=== PATIENT | female | born 1930 | race Caucasian/White ===

== ENCOUNTER 2017-10-13 16:40 | Inpatient (IN) | payer MEDICARE, BC ==
[2017-10-13] MEDS ORDERED: Prevnar 13-Val Conj/PF 0.5 ML SYRINGE IM ONE (18:45)
[2017-10-13 19:39] LABS: Bilirubin Negative (Negative); Blood, Urine Moderate (Negative); Clarity Slightly Cloudy (Clear); Glucose, Urine (Dipstick) Negative (Negative); Leukocyte Large (Negative); Nitrite Positive (Negative); Protein, Urine (Dipstick) 30 mg/dL (Neg-Trace); Urobilinogen 0.2 mg/dL (0.2-1.0)
[2017-10-13 19:46] LABS: Bacteria/HPF 2+ HPF (None Seen); RBC/HPF GREATER THAN 50-TNTC HPF (0-3); Squamous Epithelial 0-3 HPF (0-3)
[2017-10-13] MEDS: levETIRAcetam 500 MG TAB PER TUBE SCH (21:55)
[2017-10-13] MEDS: Losartan 25 MG TAB PER TUBE SCH (21:56)
[2017-10-13] MEDS: Nystatin 500,000 UNITS/5 ML UDCUP SSW SCH (21:57)
[2017-10-13] MEDS: DOFETILIDE PER TUBE SCH (21:59)
[2017-10-14] MEDS: Linezolid 600 MG TAB PER TUBE SCH ×2 (04:54→15:53)
[2017-10-14 07:21] LABS: #Basophils 0.1 thou/uL (0.0-0.2); #Eosinphils 0.1 thou/uL (0.0-0.7); #Lymphocytes 1.2 thou/uL (1.20-3.40); #Monocytes 1.2 thou/uL (0.11-0.59); %Basophils 1.2 % (0.0-1.0); %Eosinophils 1.3 % (0.0-10.0); %Lymphocytes 11.6 % (21.0-51.0); %Monocytes 11.2 % (0.0-10.0); %Neutrophils 74.6 % (42.0-75.0); Mean Corpuscular Hemoglobin 31.8 pg (27.0-31.0); Mean Corpuscular Volume 93.6 fl (81.0-99.0); Mean Platelet Volume 6.8 fL (7.4-10.4); Platelet Count 204 thou/uL (130-400); RBC Distribution Width 14.1 % (11.5-14.5); Red Blood Cell (RBC) Count 3.76 mill/uL (4.20-5.40); White Blood Cell (WBC) Count 10.7 thou/uL (4.8-10.8)
[2017-10-14 07:31] LABS: Anion Gap 18 mmol/L (10-20); BUN (Urea Nitrogen) 19 mg/dL (9.8-20.1); Calc. Creatinine Clearance 72 mL/min (70-130); Calcium 9.3 mg/dL (7.8-10.44); Carbon Dioxide 21 mmol/L (23-31); Chloride 99 mmol/L (98-107); Estimated GFR-MDRD 79; Glucose 131 mg/dL (83-110); Potassium 4.5 mmol/L (3.5-5.1); Sodium 133 mmol/L (136-145)
[2017-10-14] MEDS ORDERED: Magnesium Oxide 400 MG TAB PO SCH (09:00)
[2017-10-14] MEDS ORDERED: Calcium Carbonate 500 MG TAB PER TUBE SCH (09:00)
[2017-10-14] MEDS: Nystatin 500,000 UNITS/5 ML UDCUP SSW SCH ×2 (09:12→22:01)
[2017-10-14] MEDS: levETIRAcetam 500 MG TAB PER TUBE SCH ×2 (09:14→22:01)
[2017-10-14] MEDS: Losartan 25 MG TAB PER TUBE SCH ×2 (09:14→22:03)
[2017-10-14] MEDS: Vitami E (Dl,Tocopheryl Acet) 400 UNITS CAP PO SCH (09:15)
--- NOTE | 2017-10-14 10:09 | HP ---
DATE OF EXAMINATION: 10/14/2017 CHIEF COMPLAINT: Recent glioblastoma excision complicated by localized cellulitis and cerebritis req uiring washout and transferred here for long-term antibiotics and therapy. BRIEF HISTORY: This is a pleasant 86-year-old female who recently underwent right glioblas karina excision without any complications. She was discharged home. Apparently she was picking on her incision and developed redness and confusion and was brought to the emergency room. She was felt to have cerebritis and cellulitis. Neurosurgery evaluated her and the imaging showed a 3.3 x 3.1 cm he terogeneous intraaxial lesion in the right frontal region postoperative cavity. They did incision an d drainage with irrigation and washout. Cultures grew MRSA. It is sensitive to Zyvox, and she is on Zyvox through her PEG tube. She had to have a PEG tube placed due to dysphagia. She is apparently aphasic and minimally responsive. She has been transferred here for nutritional support continuing a ntibiotics and possible therapy. The patient is not able to respond to ak today. No family at [facility]. PAST MEDICAL HISTORY: 1. Cardiac arrhythmia, status post pacemaker placement and history of ablation. 2. Hypertension. 3. Dyslipidemia. 4. Osteoporosis. 5. Coronary artery disease. 6. Peripheral vascular disease. PAST SURGICAL HISTORY: 1. Right carotid endarterectomy. 2. Permanent pacemaker placement. 3. History of cardiac ablation. 4. Recent craniotomy for the right-sided glioblastoma excision and repeat craniotomy for wash out an d PEG tube placement. FAMILY HISTORY: Positive for TIAs and dementia in her mother. PSYCHOSOCIAL HISTORY: No documented tobacco, alcohol or IV drug abuse. CURRENT MEDICATIONS: She has been transferred here on the following medications: 1. Zyvox 600 mg per PEG b.i.d. until 11/03/2017. 2. Calcium carbonate 600 mg daily. 3. Vitamin D3 1000 units daily. 4. Tikosyn 0.125 mg per PEG t.i.d. 5. Lovenox 30 mg subcutaneously daily. 6. Keppra 250 mg b.i.d. 7. Losartan 50 mg b.i.d. 8. Magnesium 250 mg daily. 9. Toprol-XL 50 mg b.i.d. 10. Ranexa 500 mg b.i.d. 11. Vitamin E 400 units daily. REVIEW OF SYSTEMS: Unable to be obtained from the patient at the present time. PHYSICAL EXAMINATION: GENERAL: A 87-year-old female resting comfortably in no apparent distress. No family at [facility]. She is not responding to any verbal stimuli. She does grimace to sternal rub and opens her eyes, but goes back to sleep. HEENT: Craniotomy incision is healthy. No thyromegaly, no carotid bruits. CARDIOVASCULAR: S1, S2 plus. RESPIRATORY: Vesicular breath sounds. ABDOMEN: Soft, nontender, obese. Bowel sounds heard in all quadrants. EXTREMITIES: Without cyanosis, clubbing. 1+ edema. [employer]CH [employer]ENDING OFFICER: Unable to be examined. LABORATORY VALUES: Shows a white count of 10.7, H&H is 12 and 35.2. Sodium was 133, improved. It w as 131 yesterday and 127 on the . Potassium 4.5, BUN and creatinine is 19 and 0.7. Urinalysis d oes show greater than 50 to too numerous to count RBCs and 50 to too numerous to count WBCs. She luke s have a Dupont catheter. PEG tube site is healthy. IMPRESSION: 1. 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 2. Recent right-sided glioblastoma excision. 3. Dysphagia requiring PEG tube placement. 4. Coronary artery disease. 5. Cardiac arrhythmia, status post ablation. 6. Hypertension. 7. Dyslipidemia. 8. Osteoporosis. PLAN: 1. Continue Zyvox. 2. PEG tube feeding. 3. Aspiration precautions. 4. Head end of bed at 30 degrees at all times. 5. Continue discharge medications. 6. Routine laboratory values. 7. Monitor sodium level. Her hyponatremia is improving. 8. No family at bedside. 9. Physical therapy and occupational therapy as well as speech therapy evaluation and treat. 10. PEG tube care. 11. Discussed with nursing and all questions answered.
[2017-10-14] MEDS: Enoxaparin Sodium 30 MG/0.3 ML SYRINGE SC SCH (11:17)
[2017-10-14] MEDS: DOFETILIDE PER TUBE SCH ×2 (11:17→15:53)
[2017-10-14] MEDS: Dofetilide 0.125 MG CAP PER TUBE SCH (22:02)
[2017-10-14] MEDS: Metoprolol Tartrate 50 MG TAB PER TUBE SCH (22:03)
[2017-10-15] MEDS: Linezolid 600 MG TAB PER TUBE SCH ×2 (03:51→16:34)
[2017-10-15] MEDS: Losartan 25 MG TAB PER TUBE SCH ×2 (08:35→22:00)
[2017-10-15] MEDS: levETIRAcetam 500 MG TAB PER TUBE SCH ×2 (08:35→21:59)
[2017-10-15] MEDS: Nystatin 500,000 UNITS/5 ML UDCUP SSW SCH ×2 (08:35→21:58)
[2017-10-15] MEDS: Calcium Carbonate + Vit D 1 TAB PER TUBE SCH (08:36)
[2017-10-15] MEDS: Magnesium Oxide 400 MG TAB PO SCH (08:36)
[2017-10-15] MEDS: Metoprolol Tartrate 50 MG TAB PER TUBE SCH ×2 (08:36→22:01)
[2017-10-15] MEDS: Dofetilide 0.125 MG CAP PER TUBE SCH ×3 (08:36→22:00)
[2017-10-15] MEDS: Vitami E (Dl,Tocopheryl Acet) 400 UNITS CAP PO SCH (08:36)
[2017-10-15] MEDS ORDERED: MAGNESIUM PER TUBE SCH (09:00)
[2017-10-15] MEDS ORDERED: CALCIUM CARBONATE PER TUBE SCH (09:00)
[2017-10-15] MEDS: Enoxaparin Sodium 30 MG/0.3 ML SYRINGE SC SCH (09:35)
--- NOTE | 2017-10-15 15:33 | PRG ---
DATE OF SERVICE: 10/15/2017 SUBJECTIVE: Ms. Eckert is more responsive today. She opens her eyes to commands. Her family is in the room. No other concerns or questions. OBJECTIVE: VITAL SIGNS: She is afebrile. Heart rate is 80, respirations are 22, oxygen saturation 93% on room air and blood pressure 136/73. HEENT: Scalp incision is healthy and sutures were removed yesterday. CARDIOVASCULAR SYSTEM: S1 and S2 plus. RESPIRATORY SYSTEM: Normal breath sounds. ABDOMEN: Soft, obese and nontender. Bowel sounds heard in all quadrants. EXTREMITIES: Without cyanosis or clubbing. Peripheral pulses are palpable. CENTRAL NERVOUS SYSTEM: Significant weakness. She does open her eyes to commands and did nod her he ad when I told her that I was going to listen to her heart. IMPRESSION: 1. Status post glioblastoma excision. 2. Methicillin-resistant Staphylococcus aureus cerebritis, improving. 3. Hypertension, well controlled. 4. Dyslipidemia. 5. History of cardiac arrhythmia. 6. Osteoporosis. 7. Coronary artery disease without angina. 8. Peripheral vascular disease. PLAN: 1. Continue Zyvox via PEG. 2. Nutritional support. 3. Physical therapy, occupational therapy and speech therapy. 4. DVT and stress ulcer prophylaxis. 5. Decubitus precautions. 6. Routine laboratory values. 7. Nutritional support. 8. I discussed with family in detail and all questions answered.
[2017-10-15] MEDS: SMX/TMP 800-160mg/20 ML UDCUP PER TUBE SCH (21:59)
[2017-10-16] MEDS: Linezolid 600 MG TAB PER TUBE SCH ×2 (04:14→16:27)
[2017-10-16 05:30] LABS: #Basophils 0.1 thou/uL (0.0-0.2); #Eosinphils 0.2 thou/uL (0.0-0.7); #Monocytes 0.9 thou/uL (0.11-0.59); #Neutrophils 5.2 thou/uL (1.40-6.50); %Basophils 1.1 % (0.0-1.0); %Eosinophils 2.8 % (0.0-10.0); %Lymphocytes 23.8 % (21.0-51.0); %Monocytes 11.1 % (0.0-10.0); %Neutrophils 61.3 % (42.0-75.0); Mean Corpuscular HGB CONC 33.3 g/dL (32.0-36.0); Mean Corpuscular Hemoglobin 31.5 pg (27.0-31.0); Mean Corpuscular Volume 94.5 fl (81.0-99.0); Mean Platelet Volume 7.7 fL (7.4-10.4); Platelet Count 186 thou/uL (130-400); RBC Distribution Width 14.1 % (11.5-14.5); Red Blood Cell (RBC) Count 3.82 mill/uL (4.20-5.40); White Blood Cell (WBC) Count 8.5 thou/uL (4.8-10.8)
[2017-10-16 05:39] LABS: Anion Gap 16 mmol/L (10-20); BUN (Urea Nitrogen) 21 mg/dL (9.8-20.1); Calc. Creatinine Clearance 76 mL/min (70-130); Calcium 9.6 mg/dL (7.8-10.44); Carbon Dioxide 22 mmol/L (23-31); Chloride 95 mmol/L (98-107); Estimated GFR-MDRD 85; Glucose 110 mg/dL (83-110); Sodium 128 mmol/L (136-145)
[2017-10-16] MEDS: Nystatin 500,000 UNITS/5 ML UDCUP SSW SCH ×2 (09:46→21:49)
[2017-10-16] MEDS: Magnesium Oxide 400 MG TAB PO SCH (09:46)
[2017-10-16] MEDS: Dofetilide 0.125 MG CAP PER TUBE SCH ×3 (09:46→21:50)
[2017-10-16] MEDS: Vitami E (Dl,Tocopheryl Acet) 400 UNITS CAP PO SCH (09:46)
[2017-10-16] MEDS: Losartan 25 MG TAB PER TUBE SCH ×2 (09:47→21:50)
[2017-10-16] MEDS: levETIRAcetam 500 MG TAB PER TUBE SCH ×2 (09:47→21:50)
[2017-10-16] MEDS: Calcium Carbonate + Vit D 1 TAB PER TUBE SCH (09:48)
[2017-10-16] MEDS: SMX/TMP 800-160mg/20 ML UDCUP PER TUBE SCH (09:48)
[2017-10-16] MEDS: Metoprolol Tartrate 50 MG TAB PER TUBE SCH ×2 (09:48→21:49)
[2017-10-16] MEDS: Enoxaparin Sodium 30 MG/0.3 ML SYRINGE SC SCH (09:49)
--- NOTE | 2017-10-16 16:19 | PRG ---
DATE OF SERVICE: 10/16/2017 SUBJECTIVE: Mr. Eckert is awake. She is responsive. She is trying to speak. She does have some si gnificant dysarthria. She does follow simple commands. No family at bedside. OBJECTIVE: VITAL SIGNS: She is afebrile, heart rate 79, respirations 20, and blood pressure 140/65. CARDIOVASCULAR SYSTEM: S1, S2 plus. RESPIRATORY SYSTEM: Normal vesicular breath sounds. ABDOMEN: Soft, nontender, bowel sounds heard in all quadrants. EXTREMITIES: Without cyanosis or clubbing. IMPRESSION: 1. Urine culture is growing Pseudomonas, it is sensitive to ciprofloxacin and resistant to Bactrim. 2. Glioblastoma excision. 3. Cardiac arrhythmia, status post pacemaker placement and history of ablation. 4. Hypertension, well controlled. 5. Dyslipidemia. 6. Osteoporosis. 7. Coronary artery disease. PLAN: 1. Discontinue Bactrim and switch her to ciprofloxacin or Levaquin. 2. Continue nutritional support through PEG tube. 3. PT, OT, and Speech. 4. DVT and stress ulcer prophylaxis. 5. Decubitus precautions. 6. Zyvox until 11/02. 7. Routine laboratory values.
[2017-10-17] MEDS: Linezolid 600 MG TAB PER TUBE SCH ×2 (04:50→15:58)
[2017-10-17] MEDS: Nystatin 500,000 UNITS/5 ML UDCUP SSW SCH ×2 (08:58→22:09)
[2017-10-17] MEDS: levETIRAcetam 500 MG TAB PER TUBE SCH ×2 (08:59→22:10)
[2017-10-17] MEDS: Magnesium Oxide 400 MG TAB PO SCH (08:59)
[2017-10-17] MEDS: Vitami E (Dl,Tocopheryl Acet) 400 UNITS CAP PO SCH (09:00)
[2017-10-17] MEDS: Calcium Carbonate + Vit D 1 TAB PER TUBE SCH (09:00)
[2017-10-17] MEDS: Metoprolol Tartrate 50 MG TAB PER TUBE SCH ×2 (09:00→22:09)
[2017-10-17] MEDS: Losartan 25 MG TAB PER TUBE SCH ×2 (09:00→22:09)
[2017-10-17] MEDS: Dofetilide 0.125 MG CAP PER TUBE SCH ×3 (09:00→22:09)
[2017-10-17] MEDS: Enoxaparin Sodium 30 MG/0.3 ML SYRINGE SC SCH (09:01)
--- NOTE | 2017-10-17 13:32 | PRG ---
DATE OF SERVICE: 10/17/2017 SUBJECTIVE: Ms. Eckert is awake, follows some commands. Her daughter is in the room. No concerns o r questions. OBJECTIVE: VITAL SIGNS: She is afebrile. Heart rate is 81, respirations 20, oxygen saturation 95% on room air and blood pressure 137/71. CARDIOVASCULAR SYSTEM: S1 and S2 plus. RESPIRATORY SYSTEM: Normal vesicular breath sounds. ABDOMEN: Soft and nontender. Bowel sounds heard in all quadrants. EXTREMITIES: Without cyanosis or clubbing. IMPRESSION: 1. Urinary tract infection with Escherichia coli. 2. Glioblastoma excision. 3. Methicillin-resistant Staphylococcus aureus cerebritis. 4. Hypertension, well controlled. 5. Dyslipidemia. 6. Osteoporosis. 7. Coronary artery disease. PLAN: 1. Continue Levaquin. 2. PEG tube feedings. 3. Aspiration precautions. 4. PT, OT, and speech treatment. 5. DVT and stress ulcer prophylaxis. 6. Decubitus precautions. 7. Zyvox until 11/02.
[2017-10-18] MEDS: Linezolid 600 MG TAB PER TUBE SCH ×2 (05:45→15:12)
[2017-10-18] MEDS: Losartan 25 MG TAB PER TUBE SCH ×2 (08:14→21:39)
[2017-10-18] MEDS: Nystatin 500,000 UNITS/5 ML UDCUP SSW SCH ×2 (08:14→21:40)
[2017-10-18] MEDS: Vitami E (Dl,Tocopheryl Acet) 400 UNITS CAP PO SCH (08:15)
[2017-10-18] MEDS: Metoprolol Tartrate 50 MG TAB PER TUBE SCH ×2 (08:15→21:39)
[2017-10-18] MEDS: Magnesium Oxide 400 MG TAB PO SCH (08:15)
[2017-10-18] MEDS: levETIRAcetam 500 MG TAB PER TUBE SCH ×2 (08:15→21:39)
[2017-10-18] MEDS: Calcium Carbonate + Vit D 1 TAB PER TUBE SCH (08:15)
[2017-10-18] MEDS: Dofetilide 0.125 MG CAP PER TUBE SCH ×3 (08:16→21:39)
[2017-10-18] MEDS: Enoxaparin Sodium 30 MG/0.3 ML SYRINGE SC SCH (11:35)
--- NOTE | 2017-10-18 14:01 | PRG ---
DATE OF SERVICE: 10/18/2017 SUBJECTIVE: Ms. Eckert is doing the same. She does briefly open her eyes to verbal stimuli, but Ms. Eckert is not following any commands today. She is resting comfortably. OBJECTIVE: VITAL SIGNS: She is afebrile, heart rate 80, respirations 20, oxygen saturation 93% on room air, blo od pressure 134/68. CARDIOVASCULAR SYSTEM: S1 and S2 plus. RESPIRATORY SYSTEM: Normal vesicular breath sounds. ABDOMEN: Soft, nontender, bowel sounds heard in all quadrants. EXTREMITIES: Without cyanosis or clubbing. Peripheral pulses are palpable. CENTRAL NERVOUS SYSTEM: Unable to examine due to patient's condition. IMPRESSION: 1. Urinary tract infection with Escherichia coli. 2. Recent glioblastoma excision. 3. Methicillin-resistant Staphylococcus aureus cerebritis. 4. Hypertension. 5. Dyslipidemia. 6. Osteoporosis. 7. Coronary artery disease. PLAN: 1. Continue Levaquin and Zyvox. 2. PEG tube feedings. 3. Aspiration precautions. 4. PT, OT, and Speech 5. DVT and stress ulcer prophylaxis. 6. Decubitus precautions. 7. Routine laboratory values. 8. Dr. Tahmina Gipson on-call from today until Tuesday, 10/23, end date of Zyvox is 11/02.
[2017-10-19] MEDS: Linezolid 600 MG TAB PER TUBE SCH ×2 (04:56→15:54)
[2017-10-19] MEDS: Enoxaparin Sodium 30 MG/0.3 ML SYRINGE SC SCH (08:50)
[2017-10-19] MEDS: Dofetilide 0.125 MG CAP PER TUBE SCH ×3 (08:51→21:58)
[2017-10-19] MEDS: Nystatin 500,000 UNITS/5 ML UDCUP SSW SCH ×2 (08:51→21:58)
[2017-10-19] MEDS: Vitami E (Dl,Tocopheryl Acet) 400 UNITS CAP PO SCH (08:51)
[2017-10-19] MEDS: Calcium Carbonate + Vit D 1 TAB PER TUBE SCH (08:51)
[2017-10-19] MEDS: Metoprolol Tartrate 50 MG TAB PER TUBE SCH ×2 (08:51→21:58)
[2017-10-19] MEDS: Losartan 25 MG TAB PER TUBE SCH ×2 (08:51→21:58)
[2017-10-19] MEDS: Magnesium Oxide 400 MG TAB PO SCH (08:51)
[2017-10-19] MEDS: levETIRAcetam 500 MG TAB PER TUBE SCH ×2 (08:54→21:58)
--- NOTE | 2017-10-20 00:16 | PRG ---
DATE OF ADMISSION: 10/13/2017 DATE OF SERVICE: 10/19/2017 HISTORY OF PRESENT ILLNESS: Ms. Eckert is a very pleasant 87-year-old white female that underwent a right glioblastoma excision without any complications. She was discharged home, but kept aggravating incision, eventually became red and she was brought to the emergency room where she was found to hav e cerebritis and cellulitis. Neurosurgery evaluated her and found a 3.3 x 3.1 heterogeneous intraaxi al lesion in the right frontal region postop cavity. She did an excision and drainage with irrigatio n and washout. Cultures grew MRSA, which is sensitive to Zyvox. She presently is on Zyvox through t he PEG tube. She is aphasic and minimally responsive, but smiles at times. PHYSICAL EXAMINATION: VITAL SIGNS: Today reveal blood pressure this morning 134/61, pulse 80 to 82, respirations 18 to 20, O2 sat 94% to 95% on room air, T-max 97.7. GENERAL: This is a well-developed, well-nourished, very pleasant 87-year-old white female in no appa rent distress at this time. HEENT: Reveals normocephalic, nontraumatic cranium. Pupils are equally round and reactive. Extraoc ular movements intact. Nose and throat are slightly dry. NECK: Supple, without mass, nodes or bruits. LUNGS: Chest is clear to auscultation. HEART: Reveals a regular rate and rhythm without murmurs, gallops or rubs. ABDOMEN: Soft, nontender, without organomegaly. Normal bowel sounds are noted in all 4 quadrants. No rebound or guarding is noted. : Deferred. EXTREMITIES: Reveal no clubbing, cyanosis with 1+ edema. NEUROLOGIC: Cranium reveals craniotomy incision is still healing well. IMPRESSION: 1. 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 2. Right side glioblastoma excision. 3. Dysphagia requiring PEG tube placement. 4. Cardiac arrhythmia, status post ablation. 5. Coronary artery disease. 6. Hypertension. 7. Hyperlipidemia. 8. Osteoporosis. PLAN: 1. Continue Zyvox through the PEG tube. 2. Continue PEG tube feedings. 3. Aspiration precautions. 4. Head of the bed up at 30 degrees at all times. 5. Continue discharge medications. 6. Routine laboratory values. 7. Monitor sodium levels. 8. Hyponatremia, which is improving. 9. Physical therapy and occupational therapy. 10. Speech therapy. 11. PEG tube care.
[2017-10-20] MEDS: Linezolid 600 MG TAB PER TUBE SCH ×2 (04:59→16:05)
[2017-10-20] MEDS: Losartan 25 MG TAB PER TUBE SCH ×2 (09:29→23:03)
[2017-10-20] MEDS: Vitami E (Dl,Tocopheryl Acet) 400 UNITS CAP PO SCH (09:30)
[2017-10-20] MEDS: Dofetilide 0.125 MG CAP PER TUBE SCH ×3 (09:30→23:03)
[2017-10-20] MEDS: Nystatin 500,000 UNITS/5 ML UDCUP SSW SCH ×2 (09:31→23:03)
[2017-10-20] MEDS: levETIRAcetam 500 MG TAB PER TUBE SCH ×2 (09:32→23:03)
[2017-10-20] MEDS: Calcium Carbonate + Vit D 1 TAB PER TUBE SCH (09:33)
[2017-10-20] MEDS: Metoprolol Tartrate 50 MG TAB PER TUBE SCH ×2 (09:34→23:03)
[2017-10-20] MEDS: Magnesium Oxide 400 MG TAB PO SCH (10:31)
[2017-10-20] MEDS: Enoxaparin Sodium 30 MG/0.3 ML SYRINGE SC SCH (10:34)
[2017-10-20] MEDS ORDERED: Ciprofloxacin 500 MG TAB PO SCH (22:15)
--- NOTE | 2017-10-20 22:38 | PRG ---
DATE OF SERVICE: 10/20/2017 HISTORY OF PRESENT ILLNESS: Ms. Eckert is a very pleasant 87-year-old white female, underwent right glioblastoma excision without any complication. She was discharged home, but kept aggravating, the i ncision was actually became infected and when she was brought to the emergency room where she was fou nd to have cerebritis and cellulitis. Neurosurgery evaluated her and found a 3.3 x 3.1 intraaxial le isaiah in the right frontal region postop cavity. She had incision and drainage with irrigation and wa shout done. Cultures grew MRSA, which is sensitive to Zyvox, which is what she is on. She is aphasi c and minimally responsive, but smiles at times. OBJECTIVE: VITAL SIGNS: Reveal blood pressure this morning was 144/66, pulse 80, respirations 18-21, O2 sat 94% to 95% on room air, T-max 98.4. GENERAL: This is a well-developed, well-nourished, pleasant, but poorly responsive verbally white fe male, in no apparent distress at this time. HEENT: Reveals normocephalic, nontraumatic cranium. Pupils are equally round and reactive. Extraoc ular movements are intact. Nose and throat are slight dry. Incisions are clear and dry and not drai ivan. NECK: Supple without mass, nodes, bruits. CHEST: Clear to auscultation. No rales, rhonchi, wheezes or cough is heard. HEART: Reveals a regular rate and rhythm without murmurs, gallops or rubs. ABDOMEN: Soft, nontender, without organomegaly. Normal bowel sounds are noted. No rebound or guard ing is noted. : Deferred. EXTREMITIES: Reveal no clubbing, cyanosis with +1 edema. Craniotomy incision still is well healing. IMPRESSION: 1. 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 2. Right-sided glioblastoma excision. 3. Dysphagia requiring PEG tube placement. 4. Cardiac arrhythmia, status post ablation. 5. Coronary artery disease. 6. Hypertension. 7. Hyperlipidemia. 8. Osteoporosis. PLAN: 1. Continue Zyvox through the PEG tube. 2. Continue PEG tube feedings. 3. Aspiration precautions. 4. Head of the bed up to 30 degrees at all times. 5. Continue discharge medications. 6. Routine lab values. 7. Monitor sodium levels. 8. Hyponatremia, which is improving. 9. Physical therapy and occupational therapy. 10. Speech therapy. 11. PEG tube care.
[2017-10-21] MEDS: Linezolid 600 MG TAB PER TUBE SCH ×2 (04:39→15:43)
[2017-10-21] MEDS: Ciprofloxacin 500 MG TAB PO SCH ×2 (06:20→20:59)
[2017-10-21 06:31] LABS: #Basophils 0.1 thou/uL (0.0-0.2); #Eosinphils 0.1 thou/uL (0.0-0.7); #Lymphocytes 1.8 thou/uL (1.20-3.40); #Monocytes 0.9 thou/uL (0.11-0.59); #Neutrophils 6.9 thou/uL (1.40-6.50); %Basophils 0.7 % (0.0-1.0); %Eosinophils 0.6 % (0.0-10.0); %Lymphocytes 18.1 % (21.0-51.0); %Monocytes 9.3 % (0.0-10.0); %Neutrophils 71.3 % (42.0-75.0); Hemoglobin 12.5 g/dL (12.0-16.0); Mean Corpuscular HGB CONC 33.1 g/dL (32.0-36.0); Mean Corpuscular Hemoglobin 31.3 pg (27.0-31.0); Mean Corpuscular Volume 94.6 fl (81.0-99.0); Mean Platelet Volume 6.7 fL (7.4-10.4); Platelet Count 175 thou/uL (130-400); RBC Distribution Width 14.1 % (11.5-14.5); Red Blood Cell (RBC) Count 4.01 mill/uL (4.20-5.40); White Blood Cell (WBC) Count 9.7 thou/uL (4.8-10.8)
[2017-10-21 06:46] LABS: ALT (SGPT) 44 U/L (8-55); AST (SGOT) 25 U/L (5-34); Albumin 3.4 g/dL (3.4-4.8); Alkaline Phosphatase 72 U/L (40-150); Anion Gap 14 mmol/L (10-20); BUN (Urea Nitrogen) 27 mg/dL (9.8-20.1); Bilirubin, Total 0.3 mg/dL (0.2-1.2); Calc. Creatinine Clearance 78 mL/min (70-130); Calcium 9.9 mg/dL (7.8-10.44); Carbon Dioxide 25 mmol/L (23-31); Chloride 99 mmol/L (98-107); Estimated GFR-MDRD 88; Globulin 3.1 g/dL (2.4-3.5); Glucose 88 mg/dL (83-110); Potassium 4.2 mmol/L (3.5-5.1); Protein, Total 6.5 g/dL (6.0-8.3); Sodium 134 mmol/L (136-145)
[2017-10-21] MEDS: levETIRAcetam 500 MG TAB PER TUBE SCH ×2 (09:44→21:53)
[2017-10-21] MEDS: Metoprolol Tartrate 50 MG TAB PER TUBE SCH ×2 (09:45→21:53)
[2017-10-21] MEDS: Vitami E (Dl,Tocopheryl Acet) 400 UNITS CAP PO SCH (09:45)
[2017-10-21] MEDS: Dofetilide 0.125 MG CAP PER TUBE SCH ×3 (09:45→21:53)
[2017-10-21] MEDS: Losartan 25 MG TAB PER TUBE SCH ×2 (09:45→21:54)
[2017-10-21] MEDS: Calcium Carbonate + Vit D 1 TAB PER TUBE SCH (09:45)
[2017-10-21] MEDS: Nystatin 500,000 UNITS/5 ML UDCUP SSW SCH ×2 (09:46→21:53)
[2017-10-21] MEDS: Magnesium Oxide 400 MG TAB PO SCH (09:46)
[2017-10-21] MEDS: Enoxaparin Sodium 30 MG/0.3 ML SYRINGE SC SCH ×2 (09:48→09:50)
--- NOTE | 2017-10-22 00:38 | PRG ---
DATE OF SERVICE: 10/21/2017 HISTORY OF PRESENT ILLNESS: Ms. Eckert is a very pleasant 87-year-old white female who unfortunately was found to have a right glioblastoma. She was excised without any complication. She was discharg ed home. Unfortunately, she kept picking at and aggravating the incision until it became infected. She was brought back to the emergency room where she was found to have cerebritis and cellulitis. Ne urosurgery found a 3.3 x 3.1 intra-axial lesion in the right frontal region, postop cavity. She had to have an incision and drainage with irrigation, washout redone. Culture grew MRSA, which was sensi tive to Zyvox, which is what she is presently on. She is aphasic and minimally responsive, but smile s at times. LABORATORY DATA: Reveals white count of 9700 with hemoglobin 12.5, hematocrit 37.9 and a platelet co unt of 175,000. Electrolytes reveal sodium 134, potassium 4.2, chloride 99, carbon dioxide 25 with a BUN of 14. Creatinine 0.64. GFR is noted to be 88. Point of care sugars also noted to be 88. PHYSICAL EXAMINATION: VITAL SIGNS: Reveal blood pressure fasting this morning 140/85, pulse 76 to 80, respirations 20 to 2 2, O2 sat 95 to 98% on room air, temperature 97.9. GENERAL: This is a well-developed, well-nourished, very pleasant white female in no apparent distres s at this time. HEENT: Reveals normocephalic, nontraumatic cranium. Incision on the right upper vertex is noted to be well healed. Extraocular movements intact. Nose and throat are slightly dry, but clear. NECK: Supple, without mass, nodes or bruits. LUNGS: Chest is clear to auscultation. No rales, no rhonchi, no wheezes or cough is heard. HEART: Reveals a regular rate and rhythm without murmurs, gallops or rubs. ABDOMEN: Soft, nontender, without organomegaly, normal bowel sounds are noted. No rebound or guardi ng is noted. : Deferred. EXTREMITIES: Reveal no clubbing, cyanosis with 1+ edema. NEUROLOGIC: Craniotomy incision is still healing. IMPRESSION: 1. Methicillin-resistant Staphylococcus aureus cerebritis. 2. Right-sided glioblastoma excision. 3. Dysphagia requiring PEG tube placed. 4. Cardiac arrhythmia, status post ablation. 5. Coronary artery disease. 6. Hypertension. 7. Hyperlipidemia. 8. Osteoporosis. PLAN: 1. Continue Zyvox with the PEG tube. 2. Continue PEG tube feedings. 3. Aspiration precautions. 4. Head of the bed up at 30 degrees at all times. 5. Continue present medications. 6. Continue routine lab monitoring. 7. Physical therapy and occupational therapy. 8. Speech therapy. 9. PEG tube care.
[2017-10-22] MEDS: Ciprofloxacin 500 MG TAB PO SCH ×2 (05:45→21:25)
[2017-10-22] MEDS: Linezolid 600 MG TAB PER TUBE SCH ×2 (05:45→18:21)
[2017-10-22] MEDS: Metoprolol Tartrate 50 MG TAB PER TUBE SCH ×2 (10:21→21:25)
[2017-10-22] MEDS: Vitami E (Dl,Tocopheryl Acet) 400 UNITS CAP PO SCH (10:21)
[2017-10-22] MEDS: levETIRAcetam 500 MG TAB PER TUBE SCH (10:21)
[2017-10-22] MEDS: Dofetilide 0.125 MG CAP PER TUBE SCH ×3 (10:22→21:25)
[2017-10-22] MEDS: Magnesium Oxide 400 MG TAB PO SCH (10:22)
[2017-10-22] MEDS: Calcium Carbonate + Vit D 1 TAB PER TUBE SCH (10:22)
[2017-10-22] MEDS: Losartan 25 MG TAB PER TUBE SCH ×2 (10:22→21:26)
[2017-10-22] MEDS: Enoxaparin Sodium 30 MG/0.3 ML SYRINGE SC SCH (15:44)
[2017-10-22] MEDS: Nystatin 500,000 UNITS/5 ML UDCUP SSW SCH ×2 (15:58→21:25)
[2017-10-22] MEDS: levETIRAcetam 500 mg/5 ml Oral Solution PER TUBE SCH (21:25)
--- NOTE | 2017-10-22 22:03 | PRG ---
DATE OF SERVICE: 10/22/2017 DATE OF ADMISSION: 10/13/2017 HISTORY OF PRESENT ILLNESS: Ms. Eckert is a very pleasant 87-year-old white female who was unfortuna tely was found to have right glioblastoma. She was operated on and discharged home. Unfortunately, she did not do very well at home, started picking on her incision, and it became infected. She was b rought back to the emergency room and was found to have cerebritis and cellulitis. Surgery found a 3 .3 x 3.1 intraaxial mass that they removed which was thought to be infection. It was irrigated and w ashed out well. She eventually was transferred back to our care for continued care and for antibioti cs. PHYSICAL EXAMINATION: VITAL SIGNS: At this time reveal blood pressure 117/56, pulse 78-80, respirations 16-20, O2 sat 94%- 97% on room air, T-max 98.7. GENERAL: This is a well-developed, well-nourished, very pleasant white female in no apparent distres s at this time. HEENT: Reveals normocephalic, nontraumatic cranium. Pupils equal, round, and reactive. Extraocular movements are intact. Nose and throat are slightly dry. NECK: Supple, without mass, nodes or bruits. CHEST: Clear to auscultation. No rales, no rhonchi, no wheezes are heard. Breath sounds are shallo w, but clear. HEART: Reveals a regular rate and rhythm without murmurs, gallops or rubs. ABDOMEN: Soft, nontender, without organomegaly, normal bowel sounds are noted. No rebound or guardi ng is noted. GENITOURINARY: Exam is deferred. EXTREMITIES: Reveal no clubbing, cyanosis or edema. NEUROLOGIC: Craniotomy incision looks good. IMPRESSION: 1. Methicillin-resistant Staphylococcus aureus cerebritis. 2. Right-side glioblastoma excision. 3. Dysphagia requiring tube placement. 4. Dysphagia requiring percutaneous endoscopic gastrostomy tube. 5. Cardiac arrhythmia. 6. Status post ablation. 7. Coronary artery disease. 8. Hypertension. 9. Hyperlipidemia. 10. Osteoporosis. 11. Generalized weakness. PLAN: 1. Continue Zyvox with the PEG tube. 2. Continue PEG tube feedings. 3. Aspiration precautions. 4. Head of the bed up to 30 degrees at all times. 5. Continue present medications. 6. Routine labs. 7. PT and OT. 8. Speech Therapy. 9. PEG tube care.
[2017-10-23] MEDS: Linezolid 600 MG TAB PER TUBE SCH ×2 (04:59→15:05)
[2017-10-23] MEDS: Ciprofloxacin 500 MG TAB PO SCH ×2 (06:03→20:46)
[2017-10-23] MEDS: levETIRAcetam 500 mg/5 ml Oral Solution PER TUBE SCH ×2 (09:32→20:45)
[2017-10-23] MEDS: Dofetilide 0.125 MG CAP PER TUBE SCH ×3 (09:32→20:46)
[2017-10-23] MEDS: Nystatin 500,000 UNITS/5 ML UDCUP SSW SCH ×2 (09:32→20:45)
[2017-10-23] MEDS: Vitami E (Dl,Tocopheryl Acet) 400 UNITS CAP PO SCH (09:33)
[2017-10-23] MEDS: Calcium Carbonate + Vit D 1 TAB PER TUBE SCH (09:33)
[2017-10-23] MEDS: Losartan 25 MG TAB PER TUBE SCH ×2 (09:33→20:45)
[2017-10-23] MEDS: Metoprolol Tartrate 50 MG TAB PER TUBE SCH ×2 (09:33→20:46)
[2017-10-23] MEDS: Magnesium Oxide 400 MG TAB PO SCH (09:33)
[2017-10-23] MEDS: Enoxaparin Sodium 30 MG/0.3 ML SYRINGE SC SCH (11:35)
[2017-10-23] MEDS: Zinc Oxide 16% Ointment 60 gm Tube TOP PRN (20:45)
--- NOTE | 2017-10-23 23:58 | PRG ---
DATE OF SERVICE: 10/23/2017 DATE OF ADMISSION: 10/13/2017 HISTORY OF PRESENT ILLNESS: Ms. Eckert is a very pleasant unfortunate 87-year-old white female that was found to have a right-sided glioblastoma. She was operated on and discharged home. She did not do very well at home, started picking her incision and became infected. She was brought back to [facility] room and was found to have a cerebritis and cellulitis. Surgery found a 3.3 x 3.1 intraaxial m ass that they had to remove that was infection. It was irrigated and washed out well. Eventually, s he was transferred back to our care for continued care and for antibiotics. Vital signs today reveal blood pressure 131/77, pulse 76-80, respirations 16-20, O2 sat 94%-97% on ro om air, T-max 98.6. The patient's son from [place] is here, now answer few of this questions, but he would like to talk wi th Dr. Garcia tomorrow. He said he would leave back for [place] about 2 in the afternoon. PHYSICAL EXAMINATION: GENERAL: This is a well-developed, well-nourished, very pleasant white female in no apparent distres s at this time. She basically is pretty much nonverbal. She does smile at times. HEENT: Reveals normocephalic, nontraumatic cranium. Craniotomy area is well healed. Pupils are equ al, round, and reactive. Extraocular movements intact. Nose and throat are dry. NECK: Supple without mass, nodes, or bruits. CHEST: Clear to auscultation. No rales, rhonchi, wheezes, or cough is heard. HEART: Reveals a regular rate and rhythm without murmurs, gallops, or rubs. ABDOMEN: Soft, nontender without organomegaly. Normal bowel sounds are noted. No rebound or guardi ng is noted. PEG tube site is clean and clear and not red or infected. : Deferred. EXTREMITIES: Reveal no clubbing, cyanosis, or edema. Craniotomy incision continues to look good. IMPRESSION: 1. Methicillin-resistant Staphylococcus aureus cerebritis. 2. Right-sided glioblastoma excision. 3. Dysphagia requiring percutaneous endoscopic gastric tube. 4. Cardiac arrhythmia. 5. Status post ablation. 6. Coronary artery disease. 7. Hypertension. 8. Hyperlipidemia. 9. Osteoporosis. 10. Generalized weakness. PLAN: 1. Continue Zyvox through the PEG tube. 2. Continue PEG tube feedings. 3. Aspiration precautions. 4. Head off the bed up 30 degrees at all times. 5. Continue present meds. 6. Routine labs. 7. PT and OT. 8. Speech therapy. 9. PEG tube care.
[2017-10-24] MEDS: Linezolid 600 MG TAB PER TUBE SCH ×2 (04:16→16:00)
[2017-10-24] MEDS: Ciprofloxacin 500 MG TAB PO SCH ×2 (05:47→20:20)
[2017-10-24] MEDS: Dofetilide 0.125 MG CAP PER TUBE SCH ×3 (08:33→20:20)
[2017-10-24] MEDS: Calcium Carbonate + Vit D 1 TAB PER TUBE SCH (08:33)
[2017-10-24] MEDS: Magnesium Oxide 400 MG TAB PO SCH (08:33)
[2017-10-24] MEDS: Losartan 25 MG TAB PER TUBE SCH ×2 (08:33→20:20)
[2017-10-24] MEDS: Vitami E (Dl,Tocopheryl Acet) 400 UNITS CAP PO SCH (08:33)
[2017-10-24] MEDS: Nystatin 500,000 UNITS/5 ML UDCUP SSW SCH ×2 (08:34→20:20)
[2017-10-24] MEDS: Metoprolol Tartrate 50 MG TAB PER TUBE SCH ×2 (08:34→20:20)
[2017-10-24] MEDS: Enoxaparin Sodium 30 MG/0.3 ML SYRINGE SC SCH (08:41)
[2017-10-24] MEDS: levETIRAcetam 500 mg/5 ml Oral Solution PER TUBE SCH ×2 (09:08→20:20)
--- NOTE | 2017-10-24 19:02 | PRG ---
DATE OF SERVICE: 10/24/2017 SUBJECTIVE: Ms. Eckert is doing the same. She may be slightly more responsive. Her son from [place] is in the room. He states that she has been kind of tracking him and is trying to speak. He unders tands the gravity of the situation and that he just basically waiting for her brain to recover. Laboratory values are all within normal limits. OBJECTIVE: VITAL SIGNS: She is afebrile, heart rate 81, respirations 21, oxygen saturation 98% on room air, blo od pressure 109/72. CARDIOVASCULAR: S1, S2 plus. RESPIRATORY: Normal vesicular breath sounds. ABDOMEN: Soft, nontender, bowel sounds heard in all quadrants. EXTREMITIES: Without cyanosis or clubbing. CENTRAL NERVOUS SYSTEM: Significant weakness and dysarthria. IMPRESSION: 1. Urinary tract infection with an Escherichia coli, resolving. 2. Recent glioblastoma excision. 3. Methicillin-resistant Staphylococcus aureus cerebritis. 4. Hypertension. 5. Dyslipidemia. 6. Osteoporosis. 7. Coronary artery disease. PLAN: 1. Continue Zyvox, last date is 11/02/2017. 2. Levaquin, last date will be 10/28/2017. 3. PEG tube feedings. 4. Aspiration precautions. 5. PT, OT, and Speech 6. DVT and stress ulcer prophylaxis. 7. Decubitus precautions. 8. Discussed with family.
[2017-10-25] MEDS: Linezolid 600 MG TAB PER TUBE SCH ×2 (04:15→16:32)
[2017-10-25] MEDS: Ciprofloxacin 500 MG TAB PO SCH (05:58)
[2017-10-25] MEDS: Dofetilide 0.125 MG CAP PER TUBE SCH ×3 (09:50→21:23)
[2017-10-25] MEDS: Vitami E (Dl,Tocopheryl Acet) 400 UNITS CAP PO SCH (09:51)
[2017-10-25] MEDS: Losartan 25 MG TAB PER TUBE SCH ×2 (09:51→21:23)
[2017-10-25] MEDS: levETIRAcetam 500 mg/5 ml Oral Solution PER TUBE SCH ×2 (09:51→21:23)
[2017-10-25] MEDS: Magnesium Oxide 400 MG TAB PO SCH (09:51)
[2017-10-25] MEDS: Metoprolol Tartrate 50 MG TAB PER TUBE SCH ×2 (09:51→21:23)
[2017-10-25] MEDS: Calcium Carbonate + Vit D 1 TAB PER TUBE SCH (09:51)
[2017-10-25] MEDS: Enoxaparin Sodium 30 MG/0.3 ML SYRINGE SC SCH (09:52)
[2017-10-25] MEDS: Nystatin 500,000 UNITS/5 ML UDCUP SSW SCH ×2 (09:52→21:23)
--- NOTE | 2017-10-25 13:58 | PRG ---
DATE OF SERVICE: 10/25/2017 SUBJECTIVE: Ms. Eckert is sleeping, but arousable to verbal stimuli. She really does not follow com mands, but daughter stated that she apparently was responding to nurses earlier on. She was able to talk to her friend on the phone. She went outside and was able to hold her head up and sit safely in her wheelchair. OBJECTIVE: VITAL SIGNS: She is afebrile, heart rate is 81, respirations 22, oxygen saturation 94% on room air, blood pressure 132/59. CARDIOVASCULAR: S1, S2 plus. RESPIRATORY: Vesicular breath sounds. ABDOMEN: Soft, nontender, bowel sounds heard in all quadrants. EXTREMITIES: Without cyanosis or clubbing. IMPRESSION: 1. Glioblastoma excision complicated by MRSA cerebritis. 2. Significant deconditioning. 3. Resolving urinary with Escherichia coli. 4. Hypertension, well controlled. 5. Dyslipidemia. 6. Coronary artery disease without angina. 7. Osteoporosis. PLAN: 1. Continue Levaquin. For some reason, she was started on Cipro this weekend. We will discontinue it. 2. Change Florastor to Lactinex to see if it reduces the risk for oral thrush. 3. Stop vitamin E as it seems to be clogging her PEG tube. 4. Continue nutritional support. 5. DVT and stress ulcer prophylaxis. 6. Decubitus precautions. 7. Discussed with Pharmacy who came up with the suggestions, much appreciated. Discussed with bridget lui in detail.
[2017-10-26] MEDS: Linezolid 600 MG TAB PER TUBE SCH ×2 (04:24→16:30)
[2017-10-26 05:24] LABS: #Basophils 0.1 thou/uL (0.0-0.2); #Eosinphils 0.3 thou/uL (0.0-0.7); #Monocytes 1.6 thou/uL (0.11-0.59); #Neutrophils 10.5 thou/uL (1.40-6.50); %Basophils 0.9 % (0.0-1.0); %Eosinophils 1.8 % (0.0-10.0); %Lymphocytes 13.6 % (21.0-51.0); %Monocytes 10.8 % (0.0-10.0); %Neutrophils 72.9 % (42.0-75.0); Hemoglobin 13.1 g/dL (12.0-16.0); Mean Corpuscular HGB CONC 33.8 g/dL (32.0-36.0); Mean Corpuscular Volume 94.9 fl (81.0-99.0); Platelet Count 196 thou/uL (130-400); RBC Distribution Width 14.5 % (11.5-14.5); Red Blood Cell (RBC) Count 4.08 mill/uL (4.20-5.40); White Blood Cell (WBC) Count 14.5 thou/uL (4.8-10.8)
[2017-10-26 05:42] LABS: Anion Gap 16 mmol/L (10-20); BUN (Urea Nitrogen) 31 mg/dL (9.8-20.1); Calc. Creatinine Clearance 80 mL/min (70-130); Calcium 10.1 mg/dL (7.8-10.44); Carbon Dioxide 24 mmol/L (23-31); Chloride 99 mmol/L (98-107); Estimated GFR-MDRD 89; Glucose 104 mg/dL (83-110); Potassium 4.1 mmol/L (3.5-5.1); Sodium 135 mmol/L (136-145)
[2017-10-26] MEDS: levETIRAcetam 500 mg/5 ml Oral Solution PER TUBE SCH ×2 (08:55→21:26)
[2017-10-26] MEDS: Lactinex Tablet PER TUBE SCH (08:56)
[2017-10-26] MEDS: Magnesium Oxide 400 MG TAB PO SCH (08:56)
[2017-10-26] MEDS: Calcium Carbonate + Vit D 1 TAB PER TUBE SCH (08:56)
[2017-10-26] MEDS: Losartan 25 MG TAB PER TUBE SCH ×2 (08:56→21:26)
[2017-10-26] MEDS: Dofetilide 0.125 MG CAP PER TUBE SCH ×3 (08:56→21:26)
[2017-10-26] MEDS: Metoprolol Tartrate 50 MG TAB PER TUBE SCH ×2 (08:56→21:27)
[2017-10-26] MEDS: Nystatin 500,000 UNITS/5 ML UDCUP SSW SCH ×2 (08:56→21:27)
[2017-10-26] MEDS: Enoxaparin Sodium 30 MG/0.3 ML SYRINGE SC SCH (13:09)
--- NOTE | 2017-10-26 15:07 | PRG ---
DATE OF SERVICE: 10/26/2017 SUBJECTIVE: Ms. Eckert is doing the same. She opens her eyes to command. She is really not followi ng any verbal commands. Discussed with daughter and son-in-law. Discussed with Speech Therapy as we ll. She is on the modified [place] water protocol. Speech Therapy said she did not stay awake enoug h for her to try different consistencies or see if she can tolerate p.o. intake. OBJECTIVE: VITAL SIGNS: She is afebrile, heart rate 84, respirations 18, oxygen saturation 93% on room air, blo od pressure 121/59. CARDIOVASCULAR: S1, S2 plus. RESPIRATORY: Normal vesicular breath sounds. ABDOMEN: Soft, nontender, bowel sounds heard in all quadrants. EXTREMITIES: Without cyanosis or clubbing. LABORATORY VALUES: White count is 14.5 which is new for her, H&H is 13.1 and 38.7. Sodium 135, pota ssium 4.1, BUN and creatinine is 31 and 0.63. IMPRESSION: 1. Methicillin resistant Staphylococcus aureus cerebritis, resolving. We will discontinue contact i solation. 2. Urinary tract infection, on Levaquin. 3. 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 4. History of coronary artery disease, without angina. 5. Dyslipidemia. 6. Hypertension. PLAN: 1. Continue Levaquin. 2. Monitor CBC. No evidence for any other infection. 3. Continue PEG tube feeding. 4. Physical therapy. 5. Deep venous thrombosis and stress ulcer prophylaxis. 6. Decubitus precautions. 7. Routine laboratory values. 8. Discussed with family in detail. All questions answered.
[2017-10-27] MEDS: Linezolid 600 MG TAB PER TUBE SCH ×2 (05:05→15:58)
[2017-10-27 05:49] LABS: #Basophils 0.1 thou/uL (0.0-0.2); #Eosinphils 0.3 thou/uL (0.0-0.7); #Lymphocytes 2.4 thou/uL (1.20-3.40); #Monocytes 0.9 thou/uL (0.11-0.59); #Neutrophils 6.2 thou/uL (1.40-6.50); %Basophils 1.1 % (0.0-1.0); %Eosinophils 3.1 % (0.0-10.0); %Lymphocytes 24.4 % (21.0-51.0); %Neutrophils 62.4 % (42.0-75.0); Hemoglobin 12.3 g/dL (12.0-16.0); Mean Corpuscular HGB CONC 33.5 g/dL (32.0-36.0); Mean Corpuscular Hemoglobin 32.2 pg (27.0-31.0); Mean Corpuscular Volume 96.3 fl (81.0-99.0); Mean Platelet Volume 7.3 fL (7.4-10.4); Platelet Count 197 thou/uL (130-400); RBC Distribution Width 14.8 % (11.5-14.5); Red Blood Cell (RBC) Count 3.83 mill/uL (4.20-5.40)
[2017-10-27] MEDS: levETIRAcetam 500 mg/5 ml Oral Solution PER TUBE SCH ×2 (08:07→21:23)
[2017-10-27] MEDS: Metoprolol Tartrate 50 MG TAB PER TUBE SCH ×2 (08:08→21:25)
[2017-10-27] MEDS: Lactinex Tablet PER TUBE SCH (08:08)
[2017-10-27] MEDS: Nystatin 500,000 UNITS/5 ML UDCUP SSW SCH ×2 (08:08→21:23)
[2017-10-27] MEDS: Losartan 25 MG TAB PER TUBE SCH ×2 (08:08→21:25)
[2017-10-27] MEDS: Magnesium Oxide 400 MG TAB PO SCH (08:09)
[2017-10-27] MEDS: Dofetilide 0.125 MG CAP PER TUBE SCH ×3 (08:09→21:25)
[2017-10-27] MEDS: Calcium Carbonate + Vit D 1 TAB PER TUBE SCH (08:09)
[2017-10-27] MEDS: Enoxaparin Sodium 30 MG/0.3 ML SYRINGE SC SCH (10:49)
--- NOTE | 2017-10-27 13:17 | PRG ---
DATE OF SERVICE: 10/27/2017 SUBJECTIVE: Ms. Eckert opens her eyes to verbal stimuli. She really does not follow any commands fo r me today. Discussed with nursing and no concerns. No family at bedside. OBJECTIVE: VITAL SIGNS: She is afebrile, heart rate 79, respirations 20, oxygen saturation 93% on room air, blo od pressure 135/63. CARDIOVASCULAR: S1, S2 plus. RESPIRATORY: Normal vesicular breath sounds. ABDOMEN: Soft, nontender, bowel sounds heard in all quadrants. PEG tube site is healthy. EXTREMITIES: Without cyanosis or clubbing. CENTRAL NERVOUS SYSTEM: No change. LABORATORY VALUES: White count is back down to normal at 10, H&H is 12.3 and 36.9. IMPRESSION: 1. Status post glioblastoma excision. 2. Improving hyponatremia. 3. Persistent significant neurological deficits. 4. Dysphagia requiring PEG tube placement. 5. Coronary artery disease without angina. 6. Hypertension, well controlled. PLAN: 1. Continue nutritional support. 2. Continue therapy as tolerated. 3. Monitor neurological status. 4. Finish Levaquin after a total of 10 days. 5. DVT and stress ulcer prophylaxis. 6. Decubitus precaution. 7. Poor long-term prognosis.
[2017-10-28] MEDS: Linezolid 600 MG TAB PER TUBE SCH ×2 (04:29→16:25)
[2017-10-28] MEDS: Calcium Carbonate + Vit D 1 TAB PER TUBE SCH (09:12)
[2017-10-28] MEDS: Enoxaparin Sodium 30 MG/0.3 ML SYRINGE SC SCH (09:12)
[2017-10-28] MEDS: levETIRAcetam 500 mg/5 ml Oral Solution PER TUBE SCH ×2 (09:12→21:41)
[2017-10-28] MEDS: Lactinex Tablet PER TUBE SCH (09:12)
[2017-10-28] MEDS: Nystatin 500,000 UNITS/5 ML UDCUP SSW SCH ×2 (09:12→21:42)
[2017-10-28] MEDS: Losartan 25 MG TAB PER TUBE SCH ×2 (09:12→21:42)
[2017-10-28] MEDS: Metoprolol Tartrate 50 MG TAB PER TUBE SCH ×2 (09:13→21:42)
[2017-10-28] MEDS: Magnesium Oxide 400 MG TAB PO SCH (09:13)
[2017-10-28] MEDS: Dofetilide 0.125 MG CAP PER TUBE SCH ×3 (09:13→21:42)
--- NOTE | 2017-10-28 10:00 | PRG ---
DATE OF SERVICE: 10/28/2017 SUBJECTIVE: Ms. Eckert is doing the same. She opens her eyes to verbal stimuli, but really does not follow any commands from me today. OBJECTIVE: VITAL SIGNS: She is afebrile, heart rate 87, respirations 18, oxygen saturation 93% on room air, blo od pressure 114/51. CARDIOVASCULAR SYSTEM: S1, S2 plus. RESPIRATORY SYSTEM: Normal vesicular breath sounds. ABDOMEN: Soft, nontender, bowel sounds heard in all quadrants. EXTREMITIES: Without cyanosis or clubbing. PEG tube in place. IMPRESSION: 1. Status post glioblastoma excision. 2. Resolving methicillin-resistant Staphylococcus aureus cerebritis. 3. Resolving urinary tract infection. 4. Coronary artery disease without angina. 5. Significant deconditioning. 6. Dysphagia. 7. Hypertension, well controlled. PLAN: 1. Continue PEG tube feeding with aspiration precautions. 2. Finish Levaquin after a total of 10 days. 3. Zyvox to be finished on 11/01/2017. 4. DVT and stress ulcer prophylaxis. 5. Decubitus precautions. 6. Physical therapy, occupational therapy, and speech therapy. 7. Poor long-term prognosis. 8. No family at bedside. 9. Dr. Kevin Manning is risk control manager this weekend.
[2017-10-29] MEDS: Linezolid 600 MG TAB PER TUBE SCH ×2 (05:00→16:58)
[2017-10-29] MEDS: levETIRAcetam 500 mg/5 ml Oral Solution PER TUBE SCH ×2 (09:02→21:39)
[2017-10-29] MEDS: Enoxaparin Sodium 30 MG/0.3 ML SYRINGE SC SCH (09:02)
[2017-10-29] MEDS: Nystatin 500,000 UNITS/5 ML UDCUP SSW SCH ×2 (09:02→21:39)
[2017-10-29] MEDS: Zinc Oxide 16% Ointment 60 gm Tube TOP PRN (09:02)
[2017-10-29] MEDS: Metoprolol Tartrate 50 MG TAB PER TUBE SCH ×2 (09:03→21:40)
[2017-10-29] MEDS: Calcium Carbonate + Vit D 1 TAB PER TUBE SCH (09:03)
[2017-10-29] MEDS: Magnesium Oxide 400 MG TAB PO SCH (09:03)
[2017-10-29] MEDS: Dofetilide 0.125 MG CAP PER TUBE SCH ×3 (09:03→21:40)
[2017-10-29] MEDS: Lactinex Tablet PER TUBE SCH (09:03)
[2017-10-29] MEDS: Losartan 25 MG TAB PER TUBE SCH ×2 (09:03→21:39)
[2017-10-30] MEDS: Linezolid 600 MG TAB PER TUBE SCH ×2 (04:45→16:40)
[2017-10-30] MEDS: Nystatin 500,000 UNITS/5 ML UDCUP SSW SCH ×2 (08:44→21:43)
[2017-10-30] MEDS: Calcium Carbonate + Vit D 1 TAB PER TUBE SCH (08:44)
[2017-10-30] MEDS: Lactinex Tablet PER TUBE SCH (08:44)
[2017-10-30] MEDS: levETIRAcetam 500 mg/5 ml Oral Solution PER TUBE SCH ×2 (08:44→21:43)
[2017-10-30] MEDS: Metoprolol Tartrate 50 MG TAB PER TUBE SCH ×2 (08:45→21:42)
[2017-10-30] MEDS: Dofetilide 0.125 MG CAP PER TUBE SCH ×3 (08:45→21:42)
[2017-10-30] MEDS: Losartan 25 MG TAB PER TUBE SCH ×2 (08:45→21:42)
[2017-10-30] MEDS: Magnesium Oxide 400 MG TAB PO SCH (08:45)
[2017-10-30] MEDS: Enoxaparin Sodium 30 MG/0.3 ML SYRINGE SC SCH (11:24)
--- NOTE | 2017-10-30 11:45 | PRG ---
DATE OF SERVICE: 10/29/2017 SUBJECTIVE: The patient feels well with increased alertness responsive, recognizes physician. Still appears to be somewhat slow, sedated in her responses, but does appear to be improving. OBJECTIVE: VITAL SIGNS: Shows temperature 95, pulse 82, respirations 24, O2 sats 97% on room air, blood pressur e 130/76. NEUROLOGIC: Shows no focal findings. LUNGS: Clear. CARDIAC: Shows regular rhythm. ABDOMEN: PEG tube appears to be nontender. ASSESSMENT: 1. Resolving methicillin-resistant Staphylococcus aureus, Staphylococcus cerebritis on Zyvox until 0 11/01/2017. 2. Status post glioblastoma excision. 3. Coronary artery disease, symptomatic. 4. Resolved urinary tract infection, finishing Levaquin. 5. Hypertension, well controlled. PLAN: 1. Continue to monitor closely for improvement in mental status. Continue Zyvox until 11/01/2017. 2. Continue tube feeding until speech reevaluates next week. 3. Continue PT, OT.
--- NOTE | 2017-10-30 12:13 | PRG ---
DATE OF SERVICE: 10/30/2017 SUBJECTIVE: The patient is sleeping, but awakens to conversation, but does not respond verbally at t his time, but appears to be in no distress. OBJECTIVE: VITAL SIGNS: Blood pressure is 136/60, respirations 23, O2 sats 97%, temperature 97.8, pulse 79. LUNGS: Clear. CARDIAC: Regular rhythm. ABDOMEN: Soft and nontender. NEUROLOGICAL: No focal finding. ASSESSMENT: 1. Persistent cerebritis and altered mental status, treatment for MRSA with Zyvox to be finished on 11/01/2017 with waxing and waning of status, mental status improved yesterday, but appears to be back to baseline today. 2. Status post glioblastoma. 3. Resolved urinary tract infection. 4. Coronary artery disease, asymptomatic. 5. Dysphagia on percutaneous endoscopic gastrostomy tube feeding. 6. Hypertension, controlled to goal. PLAN: 1. Continue Zyvox until 11/01/2017. 2. Continue PEG tube feeding. 3. Continue decubitus and stress ulcer and DVT prophylaxis. Dr. Judd is back tonight to discuss further treatment with family.
[2017-10-31] MEDS: Linezolid 600 MG TAB PER TUBE SCH ×2 (04:58→15:35)
[2017-10-31] MEDS: Nystatin 500,000 UNITS/5 ML UDCUP SSW SCH ×2 (08:09→20:45)
[2017-10-31] MEDS: levETIRAcetam 500 mg/5 ml Oral Solution PER TUBE SCH ×2 (08:09→20:45)
[2017-10-31] MEDS: Losartan 25 MG TAB PER TUBE SCH ×2 (08:10→20:46)
[2017-10-31] MEDS: Dofetilide 0.125 MG CAP PER TUBE SCH ×3 (08:10→20:46)
[2017-10-31] MEDS: Magnesium Oxide 400 MG TAB PO SCH (08:10)
[2017-10-31] MEDS: Calcium Carbonate + Vit D 1 TAB PER TUBE SCH (08:10)
[2017-10-31] MEDS: Lactinex Tablet PER TUBE SCH (08:10)
[2017-10-31] MEDS: Metoprolol Tartrate 50 MG TAB PER TUBE SCH ×2 (08:10→20:46)
[2017-10-31] MEDS: Enoxaparin Sodium 30 MG/0.3 ML SYRINGE SC SCH (11:57)
--- NOTE | 2017-10-31 13:19 | PRG ---
DATE OF SERVICE: 10/31/2017 SUBJECTIVE: Ms. Eckert is doing well. Denies any concerns. She opens her eyes to command. She curtis lly does not follow any commands. Her son, Claus, is in the room. He states that she had a good weeke nd. OBJECTIVE: VITAL SIGNS: She is afebrile, heart rate 80, respirations 23, oxygen saturation 96% on room air, blo od pressure 170/78. CARDIOVASCULAR: S1, S2 plus. RESPIRATORY: Normal vesicular breath sounds. ABDOMEN: Soft, nontender, bowel sounds heard in all quadrants. EXTREMITIES: Without cyanosis or clubbing. PEG tube site is healthy. IMPRESSION: 1. Status post glioblastoma excision. 2. Dysphagia requiring PEG tube placement. 3. Coronary artery disease with angina. 4. Deconditioning. 5. Significant neurological deficits. 6. Hypertension, fluctuating control. PLAN: 1. Continue nutritional support with PEG tube feeding and aspiration precautions. 2. Finish Zyvox tomorrow. She will finish 4 weeks of therapy. 3. Levaquin for a total of 10 days, it was started 10/17/2017, so she should be finished now. 4. Physical therapy, occupational therapy, and speech therapy. 5. DVT and stress ulcer prophylaxis. 6. Discussed with son in detail. All questions answered. 7. Poor long-term prognosis.
[2017-11-01] MEDS: Linezolid 600 MG TAB PER TUBE SCH ×2 (05:06→15:40)
[2017-11-01] MEDS: Losartan 25 MG TAB PER TUBE SCH ×2 (09:16→20:41)
[2017-11-01] MEDS: levETIRAcetam 500 mg/5 ml Oral Solution PER TUBE SCH (09:16)
[2017-11-01] MEDS: Nystatin 500,000 UNITS/5 ML UDCUP SSW SCH ×2 (09:16→20:42)
[2017-11-01] MEDS: Dofetilide 0.125 MG CAP PER TUBE SCH ×3 (09:17→20:41)
[2017-11-01] MEDS: Calcium Carbonate + Vit D 1 TAB PER TUBE SCH (09:17)
[2017-11-01] MEDS: Magnesium Oxide 400 MG TAB PO SCH (09:17)
[2017-11-01] MEDS: Metoprolol Tartrate 50 MG TAB PER TUBE SCH ×2 (09:18→20:41)
[2017-11-01] MEDS: Lactinex Tablet PER TUBE SCH (09:18)
[2017-11-01] MEDS: Enoxaparin Sodium 30 MG/0.3 ML SYRINGE SC SCH (10:46)
--- NOTE | 2017-11-01 13:47 | PRG ---
DATE OF SERVICE: 11/01/2017 Ms. Eckert has been moved to 149. She is doing well. Denies any complaints. No family at bedside, discussed with nursing. Apparently she threw up once when she was sitting up in her wheelchair. She is really not following any verbal commands from me which is not unusual. She is tolerating her PEG tube feedings. OBJECTIVE: VITAL SIGNS: She is afebrile, heart rate is 77, respirations 20, oxygen saturation is 96% on room ai r, blood pressure 142/60. CARDIOVASCULAR: S1, S2 plus. RESPIRATORY: Normal vesicular breath sounds. ABDOMEN: Soft, nontender, bowel sounds heard in all quadrants. PEG tube site is healthy. EXTREMITIES: Without cyanosis or clubbing. IMPRESSION: 1. Status post glioblastoma excision. 2. Significant dysphagia requiring PEG tube placement. 3. Coronary artery disease without angina. 4. Episode of vomiting may be vasovagal. Her blood pressure was as low as 97/50 this morning PLAN: 1. Monitor for any further episodes of vomiting and for blood pressure fluctuation. 2. Nutritional support. 3. Aspiration precautions. 4. Physical therapy. 5. Routine laboratory values. 6. Poor long-term prognosis.
[2017-11-02] MEDS: Linezolid 600 MG TAB PER TUBE SCH ×2 (04:48→16:02)
[2017-11-02 05:42] LABS: #Basophils 0.1 thou/uL (0.0-0.2); #Eosinphils 0.3 thou/uL (0.0-0.7); #Lymphocytes 2.3 thou/uL (1.20-3.40); #Neutrophils 4.6 thou/uL (1.40-6.50); %Basophils 1.5 % (0.0-1.0); %Eosinophils 3.3 % (0.0-10.0); %Lymphocytes 27.9 % (21.0-51.0); %Monocytes 11.5 % (0.0-10.0); %Neutrophils 55.8 % (42.0-75.0); Hemoglobin 11.7 g/dL (12.0-16.0); Mean Corpuscular HGB CONC 32.5 g/dL (32.0-36.0); Mean Corpuscular Hemoglobin 31.4 pg (27.0-31.0); Mean Corpuscular Volume 96.6 fl (81.0-99.0); Mean Platelet Volume 7.7 fL (7.4-10.4); Platelet Count 169 thou/uL (130-400); RBC Distribution Width 15.1 % (11.5-14.5); Red Blood Cell (RBC) Count 3.73 mill/uL (4.20-5.40); White Blood Cell (WBC) Count 8.2 thou/uL (4.8-10.8)
[2017-11-02 05:53] LABS: Anion Gap 13 mmol/L (10-20); BUN (Urea Nitrogen) 26 mg/dL (9.8-20.1); Calc. Creatinine Clearance 88 mL/min (70-130); Calcium 9.4 mg/dL (7.8-10.44); Carbon Dioxide 24 mmol/L (23-31); Chloride 101 mmol/L (98-107); Estimated GFR-MDRD Greater than 90; Glucose 104 mg/dL (83-110); Potassium 4.3 mmol/L (3.5-5.1); Sodium 134 mmol/L (136-145)
[2017-11-02] MEDS: Magnesium Oxide 400 MG TAB PO SCH (09:53)
[2017-11-02] MEDS: Nystatin 500,000 UNITS/5 ML UDCUP SSW SCH ×2 (09:53→21:29)
[2017-11-02] MEDS: Lactinex Tablet PER TUBE SCH (09:53)
[2017-11-02] MEDS: Metoprolol Tartrate 50 MG TAB PER TUBE SCH ×2 (09:53→21:29)
[2017-11-02] MEDS: Dofetilide 0.125 MG CAP PER TUBE SCH ×3 (09:53→21:29)
[2017-11-02] MEDS: Losartan 25 MG TAB PER TUBE SCH ×2 (09:53→21:29)
[2017-11-02] MEDS: Calcium Carbonate + Vit D 1 TAB PER TUBE SCH (09:54)
[2017-11-02] MEDS: Enoxaparin Sodium 30 MG/0.3 ML SYRINGE SC SCH (12:45)
--- NOTE | 2017-11-02 13:24 | PRG ---
DATE OF SERVICE: 11/02/2017 SUBJECTIVE: Ms. Eckert is doing well. Denies any complaints. She states that she is doing pretty g ood when I asked her how therapy was this morning, but daughter states that she did not have any ther apy. Family is trying to find a fdc facility for her. Keppra was discontinued yesterday, I spoke with Dr. Guzman's PA. OBJECTIVE: VITAL SIGNS: She is afebrile, heart rate 78, respirations 20, oxygen saturation 93% on room air, blo od pressure 122/55. CARDIOVASCULAR: S1, S2 plus. RESPIRATORY: Normal breath sounds. ABDOMEN: Soft, nontender. PEG tube site is healthy. EXTREMITIES: Without cyanosis or clubbing. CENTRAL NERVOUS SYSTEM: Still with persistent significant neurological deficits. LABORATORY VALUES: White count is 8.2, H&H is 11.7 and 36.1. Sodium 134, potassium 4.3, BUN and cre atinine is 26 and 0.57. IMPRESSION: 1. Status post glioblastoma excision. 2. Significant neurological deficits. 3. Resolved methicillin-resistant Staphylococcus aureus cerebritis. 4. Resolved urinary tract infection. 5. Dysphagia requiring PEG tube placement. 6. Coronary artery disease without angina. PLAN: 1. Discontinue Dupont catheter. 2. Discontinue PICC line as it is not functioning. 3. Continue PEG tube feeding with aspiration precautions. 4. Monitor neurological status. 5. Monitor cardiovascular status to see if there are any signs or symptoms of decompensation of her heart disease. 6. Routine laboratory values. 7. DVT and stress ulcer prophylaxis. 8. Decubitus precautions. 9. Monitor her sodium level. 10. Poor long-term prognosis. 11. Discussed with patient and daughter in detail. All questions answered.
[2017-11-03] MEDS: Linezolid 600 MG TAB PER TUBE SCH ×2 (04:30→15:48)
[2017-11-03] MEDS: Losartan 25 MG TAB PER TUBE SCH ×2 (08:49→21:26)
[2017-11-03] MEDS: Calcium Carbonate + Vit D 1 TAB PER TUBE SCH (08:49)
[2017-11-03] MEDS: Nystatin 500,000 UNITS/5 ML UDCUP SSW SCH ×2 (08:49→21:25)
[2017-11-03] MEDS: Lactinex Tablet PER TUBE SCH (08:50)
[2017-11-03] MEDS: Dofetilide 0.125 MG CAP PER TUBE SCH ×3 (08:50→21:25)
[2017-11-03] MEDS: Magnesium Oxide 400 MG TAB PO SCH (08:50)
[2017-11-03] MEDS: Metoprolol Tartrate 50 MG TAB PER TUBE SCH ×2 (08:50→21:25)
[2017-11-03] MEDS: Enoxaparin Sodium 30 MG/0.3 ML SYRINGE SC SCH (13:57)
--- NOTE | 2017-11-03 19:35 | PRG ---
DATE OF SERVICE: 11/03/2017 SUBJECTIVE: Ms. Eckert is much more awake and alert. She apparently really responded to speech ther apy and followed commands. The plan is to start her on some pleasure feedings when she is alert like this. Family is agreeable. She is also off her Keppra. OBJECTIVE: VITAL SIGNS: She is afebrile. Heart rate 76, respirations 18, oxygen saturation 93% on room air and blood pressure 138/72. CARDIOVASCULAR SYSTEM: S1 and S2 plus. RESPIRATORY SYSTEM: Normal vesicular breath sounds. ABDOMEN: Soft and nontender. Bowel sounds heard in all quadrants. EXTREMITIES: Without cyanosis or clubbing. Peripheral pulses are palpable. CENTRAL NERVOUS SYSTEM: Significant neurological deficits. IMPRESSION: 1. Status post glioblastoma excision. 2. Coronary artery disease without angina. 3. Hypertension, well controlled. 4. Improving deconditioning in mental status. PLAN: 1. Pleasure feedings with pureed diet with aspiration precautions when widely awake. 2. Continue current medications and continue PEG tube feeding. 3. Aspiration precautions. 4. DVT and stress ulcer prophylaxis. 5. Decubitus precautions. 6. Physical therapy. 7. Routine laboratory values.
[2017-11-04] MEDS: Zinc Oxide 16% Ointment 60 gm Tube TOP PRN (04:48)
[2017-11-04] MEDS: Linezolid 600 MG TAB PER TUBE SCH ×2 (04:48→16:46)
[2017-11-04] MEDS: Magnesium Oxide 400 MG TAB PO SCH (09:10)
[2017-11-04] MEDS: Calcium Carbonate + Vit D 1 TAB PER TUBE SCH (09:10)
[2017-11-04] MEDS: Dofetilide 0.125 MG CAP PER TUBE SCH ×3 (09:10→21:51)
[2017-11-04] MEDS: Metoprolol Tartrate 50 MG TAB PER TUBE SCH ×2 (09:10→21:52)
[2017-11-04] MEDS: Nystatin 500,000 UNITS/5 ML UDCUP SSW SCH ×2 (09:10→21:51)
[2017-11-04] MEDS: Losartan 25 MG TAB PER TUBE SCH ×2 (09:10→21:51)
[2017-11-04] MEDS: Lactinex Tablet PER TUBE SCH (09:11)
[2017-11-04] MEDS: Enoxaparin Sodium 30 MG/0.3 ML SYRINGE SC SCH (11:07)
--- NOTE | 2017-11-04 20:31 | PRG ---
DATE OF SERVICE: 11/04/2017 SUBJECTIVE: Ms. Eckert is the same to me. She is still not following any commands for me today. OBJECTIVE: VITAL SIGNS: She is afebrile, heart rate 76, respirations 21, oxygen saturation 93%, blood pressure 142/62. Nursing states that she has been improving per their observation. CARDIOVASCULAR: S1, S2 plus. RESPIRATORY: vesicular breath sounds. ABDOMEN: Soft, nontender, bowel sounds heard in all quadrants. PEG tube in place. EXTREMITIES: Without cyanosis or clubbing. CENTRAL NERVOUS SYSTEM: Significant neurological deficits. IMPRESSION: 1. Glioblastoma, status post excision to methicillin-resistant Staphylococcus aureus cerebritis, whi ch has resolved. 2. Resolved urinary tract infection. 3. Coronary artery disease without angina. 4. Hypertension, well controlled. PLAN: 1. Continue current medications. 2. Physical therapy, occupational therapy, and speech therapy. 3. Pleasure feedings. 4. Aspiration precautions. 5. PEG tube feeding. 6. DVT and stress ulcer prophylaxis. 7. Decubitus precautions. 8. Poor long-term prognosis.
[2017-11-05] MEDS: Linezolid 600 MG TAB PER TUBE SCH ×2 (04:45→15:04)
[2017-11-05 05:31] LABS: #Basophils 0.1 thou/uL (0.0-0.2); #Eosinphils 0.3 thou/uL (0.0-0.7); #Lymphocytes 2.5 thou/uL (1.20-3.40); #Monocytes 1.1 thou/uL (0.11-0.59); #Neutrophils 4.9 thou/uL (1.40-6.50); %Basophils 0.7 % (0.0-1.0); %Eosinophils 3.3 % (0.0-10.0); %Lymphocytes 28.1 % (21.0-51.0); %Monocytes 12.2 % (0.0-10.0); %Neutrophils 55.7 % (42.0-75.0); Hemoglobin 11.5 g/dL (12.0-16.0); Mean Corpuscular HGB CONC 34.2 g/dL (32.0-36.0); Mean Corpuscular Hemoglobin 32.1 pg (27.0-31.0); Mean Corpuscular Volume 94.1 fl (81.0-99.0); Mean Platelet Volume 7.5 fL (7.4-10.4); Platelet Count 165 thou/uL (130-400); Red Blood Cell (RBC) Count 3.58 mill/uL (4.20-5.40); White Blood Cell (WBC) Count 8.8 thou/uL (4.8-10.8)
[2017-11-05 05:49] LABS: Anion Gap 14 mmol/L (10-20); BUN (Urea Nitrogen) 28 mg/dL (9.8-20.1); Calc. Creatinine Clearance 85 mL/min (70-130); Calcium 9.7 mg/dL (7.8-10.44); Carbon Dioxide 26 mmol/L (23-31); Chloride 98 mmol/L (98-107); Estimated GFR-MDRD Greater than 90; Glucose 97 mg/dL (83-110); Potassium 4.3 mmol/L (3.5-5.1); Sodium 134 mmol/L (136-145)
[2017-11-05] MEDS: Nystatin 500,000 UNITS/5 ML UDCUP SSW SCH ×2 (09:00→21:27)
[2017-11-05] MEDS: Dofetilide 0.125 MG CAP PER TUBE SCH ×3 (09:12→21:27)
[2017-11-05] MEDS: Metoprolol Tartrate 50 MG TAB PER TUBE SCH ×2 (09:12→21:27)
[2017-11-05] MEDS: Magnesium Oxide 400 MG TAB PO SCH (09:12)
[2017-11-05] MEDS: Losartan 25 MG TAB PER TUBE SCH ×2 (09:12→21:27)
[2017-11-05] MEDS: Lactinex Tablet PER TUBE SCH (09:12)
[2017-11-05] MEDS: Calcium Carbonate + Vit D 1 TAB PER TUBE SCH (09:17)
--- NOTE | 2017-11-05 11:24 | PRG ---
DATE OF SERVICE: 11/05/2017 SUBJECTIVE: Ms. Eckert is doing the same. She opens her eyes to commands. She was not able to foll ow my command to hold my finger and squeeze. She does track me when I walk across the room. Her son is in the room and I had a long discussion with him. He understands that the prognosis is poor, but he thinks that she is improving albeit very, very slowly. He wants to have a CT scan done on to evaluate her glioblastoma. He understands that even if it has recurred, she is not in any condi tion to undergo chemotherapy or radiation at this point. OBJECTIVE: VITAL SIGNS: She is afebrile, heart rate 79, respirations 18, oxygen saturation 95% on room air, blo od pressure 137/65. CARDIOVASCULAR: S1, S2 plus. RESPIRATORY: Normal vesicular breath sounds. ABDOMEN: Soft, nontender. PEG tube in place. EXTREMITIES: Without cyanosis or clubbing. CENTRAL NERVOUS SYSTEM: Significant neurological deficits. LABORATORY VALUES: White count is 8.8, H&H is 11.5 and 33.6, platelet count is 165. Sodium 134, pot assium 4.3, BUN and creatinine are 28 and 0.59. IMPRESSION: 1. Status post glioblastoma excision with significant neurological deficits. 2. Methicillin-resistant Staphylococcus aureus cerebritis, which has resolved. 3. Resolved urinary tract infection. 4. Coronary artery disease without angina. 5. Dysphagia requiring PEG tube placement. 6. Significant deconditioning. 7. Hypertension, well controlled. PLAN: 1. Continue nutritional support with PEG feeding. 2. Pleasure feedings when she is really awake. Family is aware of the risks of aspiration. 3. Routine laboratory values. 4. Scheduled CT scan of the brain for Tuesday. 5. Deep venous thrombosis and stress ulcer prophylaxis. 6. Decubitus precautions. 7. Explain to the son, the reasoning behind removing her Dupont catheter. Nursing will monitor her c losely for any evidence for skin breakdown. 8. Poor long-term prognosis.
[2017-11-05] MEDS: Enoxaparin Sodium 30 MG/0.3 ML SYRINGE SC SCH (15:16)
[2017-11-06] MEDS: Linezolid 600 MG TAB PER TUBE SCH ×2 (04:42→16:29)
[2017-11-06] MEDS: Nystatin 500,000 UNITS/5 ML UDCUP SSW SCH ×2 (10:36→21:24)
[2017-11-06] MEDS: Calcium Carbonate + Vit D 1 TAB PER TUBE SCH (10:36)
[2017-11-06] MEDS: Dofetilide 0.125 MG CAP PER TUBE SCH ×3 (10:36→21:25)
[2017-11-06] MEDS: Metoprolol Tartrate 50 MG TAB PER TUBE SCH ×2 (10:36→21:25)
[2017-11-06] MEDS: Losartan 25 MG TAB PER TUBE SCH ×2 (10:36→21:25)
[2017-11-06] MEDS: Magnesium Oxide 400 MG TAB PO SCH (10:37)
[2017-11-06] MEDS: Lactinex Tablet PER TUBE SCH (10:37)
[2017-11-06] MEDS: Enoxaparin Sodium 30 MG/0.3 ML SYRINGE SC SCH (10:39)
--- NOTE | 2017-11-06 11:32 | PRG ---
DATE OF SERVICE: 11/06/2017 SUBJECTIVE: Ms. Eckert is much more awake and responsive today. She responds to verbal stimuli. Kenyon dunn answered appropriately to my questions. She followed most of my directions. Discussed with lazaro cota, no concerns. No family at bedside. OBJECTIVE: VITAL SIGNS: She is afebrile, heart rate 79, respirations 18, oxygen saturation 97% on room air, and blood pressure 120/56. CARDIOVASCULAR SYSTEM: S1, S2 plus. RESPIRATORY SYSTEM: Normal vesicular breath sounds. ABDOMEN: Soft, nontender, bowel sounds heard in all quadrants. EXTREMITIES: Without cyanosis or clubbing. CENTRAL NERVOUS SYSTEM: Improving deficits. IMPRESSION: 1. Status post glioblastoma excision. 1. Dysphagia requiring percutaneous endoscopic gastrostomy tube placement. 2. Coronary artery disease without angina. 3. Hypertension well controlled. PLAN: 1. Continue PEG tube feeding. 2. Continue physical therapy, occupational therapy, and speech therapy. 3. DVT and stress ulcer prophylaxis. 4. Decubitus precautions. 5. Repeat CT brain on Tuesday per family request. 6. Discussed with patient and nursing in detail and all questions answered. 7. No family at bedside.
[2017-11-07] MEDS: Linezolid 600 MG TAB PER TUBE SCH (04:58)
[2017-11-07] MEDS: Dofetilide 0.125 MG CAP PER TUBE SCH ×3 (09:47→21:15)
[2017-11-07] MEDS: Nystatin 500,000 UNITS/5 ML UDCUP SSW SCH ×2 (09:47→21:15)
[2017-11-07] MEDS: Calcium Carbonate + Vit D 1 TAB PER TUBE SCH (09:47)
[2017-11-07] MEDS: Metoprolol Tartrate 50 MG TAB PER TUBE SCH ×2 (09:48→21:15)
[2017-11-07] MEDS: Magnesium Oxide 400 MG TAB PO SCH (09:48)
[2017-11-07] MEDS: Losartan 25 MG TAB PER TUBE SCH ×2 (09:48→21:15)
[2017-11-07] MEDS: Lactinex Tablet PER TUBE SCH (09:48)
[2017-11-07] MEDS: Zinc Oxide 16% Ointment 60 gm Tube TOP PRN (09:48)
[2017-11-07] MEDS: Enoxaparin Sodium 30 MG/0.3 ML SYRINGE SC SCH (11:52)
--- NOTE | 2017-11-07 13:15 | PRG ---
DATE OF SERVICE: 11/07/2017 SUBJECTIVE: Ms. Eckert is doing well. Denies any complaints, resting comfortably, tolerating her me dications and her PEG tube feeding. Her son from [place] is in the room. The plan is to get a CT bra in tomorrow. She is not as alert as she was yesterday. OBJECTIVE: VITAL SIGNS: She is afebrile, heart rate is 85, respirations 23, oxygen saturation 99%, blood pressu re this morning is documented as 180/80. I asked them to recheck it since this is very unusual for h er. CARDIOVASCULAR: S1, S2 plus. RESPIRATORY: Normal vesicular breath sounds. ABDOMEN: Soft, nontender, bowel sounds heard in all quadrants. EXTREMITIES: Without cyanosis or clubbing. IMPRESSION: 1. Status post glioblastoma excision. 2. Significant neurological deficits. 3. Coronary artery disease without angina. 4. Hypertension, high reading this morning. Advised nursing to recheck it. 5. Significant deconditioning. PLAN: 1. Continue PEG tube feeding. 2. CT brain tomorrow. 3. Recheck blood pressure. 4. Continue current medications. 5. Routine laboratory values. 6. Discussed with son in detail. All questions answered.
[2017-11-08 05:32] LABS: #Basophils 0.1 thou/uL (0.0-0.2); #Eosinphils 0.4 thou/uL (0.0-0.7); #Lymphocytes 2.5 thou/uL (1.20-3.40); #Monocytes 0.9 thou/uL (0.11-0.59); %Basophils 0.9 % (0.0-1.0); %Eosinophils 4.9 % (0.0-10.0); %Lymphocytes 31.8 % (21.0-51.0); %Monocytes 11.3 % (0.0-10.0); %Neutrophils 51.1 % (42.0-75.0); Hemoglobin 11.9 g/dL (12.0-16.0); Mean Corpuscular HGB CONC 32.8 g/dL (32.0-36.0); Mean Corpuscular Hemoglobin 31.5 pg (27.0-31.0); Mean Platelet Volume 7.1 fL (7.4-10.4); Platelet Count 155 thou/uL (130-400); Red Blood Cell (RBC) Count 3.79 mill/uL (4.20-5.40); White Blood Cell (WBC) Count 7.9 thou/uL (4.8-10.8)
[2017-11-08 05:49] LABS: Anion Gap 15 mmol/L (10-20); BUN (Urea Nitrogen) 27 mg/dL (9.8-20.1); Calc. Creatinine Clearance 85 mL/min (70-130); Calcium 9.6 mg/dL (7.8-10.44); Carbon Dioxide 25 mmol/L (23-31); Chloride 102 mmol/L (98-107); Estimated GFR-MDRD Greater than 90; Glucose 117 mg/dL (83-110); Potassium 4.7 mmol/L (3.5-5.1); Sodium 137 mmol/L (136-145)
[2017-11-08] MEDS: Enoxaparin Sodium 30 MG/0.3 ML SYRINGE SC SCH (12:11)
[2017-11-08] MEDS: Losartan 25 MG TAB PER TUBE SCH ×2 (12:12→20:22)
[2017-11-08] MEDS: Metoprolol Tartrate 50 MG TAB PER TUBE SCH ×2 (12:12→20:23)
[2017-11-08] MEDS: Dofetilide 0.125 MG CAP PER TUBE SCH ×3 (12:12→20:22)
[2017-11-08] MEDS: Magnesium Oxide 400 MG TAB PO SCH (12:13)
[2017-11-08] MEDS: Calcium Carbonate + Vit D 1 TAB PER TUBE SCH (12:13)
[2017-11-08] MEDS: Nystatin 500,000 UNITS/5 ML UDCUP SSW SCH ×2 (12:13→20:22)
[2017-11-08] MEDS: Lactinex Tablet PER TUBE SCH (12:13)
--- NOTE | 2017-11-08 14:03 | PRG ---
DATE OF SERVICE: 11/08/2017 SUBJECTIVE: Ms. Eckert is doing well. Denies any complaints, resting comfortably. She is going to work with speech therapy. Her daughter is in the room. OBJECTIVE: VITAL SIGNS: She is afebrile, heart rate 80, respirations 20, oxygen saturation 96% on room air, blo od pressure 133/70. CARDIOVASCULAR: S1, S2 plus. RESPIRATORY: Normal vesicular breath sounds. ABDOMEN: Soft, nontender, bowel sounds heard in all quadrants. EXTREMITIES: Without cyanosis or clubbing. Scalp incision is healthy. There is some minimal fullness in the lateral aspect of the incision, non tender, nonerythematous, reassured the daughter. LABORATORY VALUES: White count 7.9, H&H 11.9 and 36.4. Sodium 137, potassium 4.7, BUN and creatinin e is 27 and 0.59. IMPRESSION: 1. Glioblastoma excision. 2. Methicillin-resistant Staphylococcus aureus cerebritis status post washout and antibiotics. 3. Resolved urinary tract infection. 4. Coronary artery disease without angina. 5. Deconditioning. 6. Dysphagia. PLAN: 1. Await CT report. 2. Continue speech therapy and physical therapy. 3. PEG tube feedings. 4. Aspiration precautions. 5. DVT and stress ulcer prophylaxis. 6. Decubitus precautions. 7. Poor long-term prognosis. 8. Discussed with daughter in detail. All questions answered.
--- NOTE | 2017-11-08 14:09 | CT ---
CT BRAIN WITH AND WITHOUT CONTRAST: DATE: 11/08/17 HISTORY: 87-year-old female with glioblastoma, status post surgical resection. Follow-up. Dr. Mirza texted Dr. Melgar regarding the relevant new findings at 1133 hours on 11/08/17. COMPARISON: CT with and without contrast of 09/01/17, and noncontrast CT of 09/25/17. TECHNIQUE: Precontrast scan of brain IV injection iodinated contrast media: 96 mL [id number] Postcontrast scan of brain FINDINGS: The right frontal craniotomy changes demonstrated on 09/25/17 are again noted. The intra-axial pneumo cephalus abutting the right frontal lobe tumor surgical resection site has resolved. The extra-axial pneumocephalus has become much smaller now, abutting the craniotomy bone flap. This layer of extraaxi al gas currently measures approximately 1.0 x 0.5 cm, and is a part of a small, shallow extra-axial f luid collection that measures approximately 3 x 0.8 cm. There is a new band of enhancement along the deep surface of this extra-axial fluid collection (image 20 of 34, series 4). In the region of the surgical biopsy or resection, the right frontal lobe intra-axial rim-enhancing l esion currently measures approximately 2 x 2.2 cm. There is a new finding of slight peripheral extens ions of faint enhancement posterior and deep to this lesion (image 16 of 34, series 4). The frontal h orn of the right lateral ventricle is puckered and stretched into the posterior edge of the enhancing intraaxial lesion, a new finding. There is another finding of collapse in volume of the trigone, occipital horn, and posterior body of the right lateral ventricle, where there is a new finding of enhancement, either along the ependyma o r filling the ventricular lumen, or both. These areas of enhancement are slightly hyperdense on the p recontrast scan. There has been interval development of mild to moderate dilation of the rest of the ventricles (right temporal horn and right frontal horn, entire left lateral ventricle, entire third ventricle, and to a lesser degree entire fourth ventricle). No abnormal enhancement is visualized within the third, lef t lateral, or fourth ventricle. There are moderate chronic ischemic white matter changes in the cereb rum bilaterally. No midline shift. IMPRESSION: 1. Status post surgical biopsy or resection of the right frontal lobe glioblastoma via right frontal craniotomy. 2. New enhancement in the small postoperative fluid collection just deep to the right frontal cranio tommie bone flap. This could represent granulation tissue due to postsurgical changes, or infection. A lternatively, this could represent involvement by the neoplasm. 3. Strongly enhancing right intraventricular material, and interval development of contraction, of t he posterior aspect of the right lateral ventricle. This could represent ependymal or subependymal ne oplastic tumor spread, or infection (ventriculitis). 4. Interval development of ventriculomegaly involving the rest of the ventricles, which could either be due to central parenchymal volume loss, or a low grade communicating obstructive hydrocephalus. CODE CR. JN R ADDENDUM: Dr. Mirza discussed the findings by telephone with Dr. Guzman's neurosurgery PA, Roosevelt Story, at 142 3 hours 11/08/17. POS: [facility]
[2017-11-08] MEDS: Vancomycin HCl 750 MG in Sodium Chloride 0.9% 250 ML 250 ML IVPB SCH (20:21)
[2017-11-08] MEDS: Vancomycin HCl 500 MG in Sodium Chloride 0.9% 100 ML IVPB SCH (20:22)
[2017-11-09] MEDS: Calcium Carbonate + Vit D 1 TAB PER TUBE SCH (08:47)
[2017-11-09] MEDS: Losartan 25 MG TAB PER TUBE SCH ×2 (08:48→20:18)
[2017-11-09] MEDS: Magnesium Oxide 400 MG TAB PO SCH (08:48)
[2017-11-09] MEDS: Dofetilide 0.125 MG CAP PER TUBE SCH ×3 (08:48→20:18)
[2017-11-09] MEDS: Nystatin 500,000 UNITS/5 ML UDCUP SSW SCH ×2 (08:48→20:17)
[2017-11-09] MEDS: Lactinex Tablet PER TUBE SCH (08:48)
[2017-11-09] MEDS: Metoprolol Tartrate 50 MG TAB PER TUBE SCH ×2 (08:48→20:18)
[2017-11-09] MEDS: Enoxaparin Sodium 30 MG/0.3 ML SYRINGE SC SCH (12:39)
--- NOTE | 2017-11-09 13:35 | PRG ---
DATE OF SERVICE: 11/09/2017 SUBJECTIVE: Ms. Eckert is doing the same. Denies any complaints, resting comfortably. Daughter sta violet that she has been more talkative today. Discussed with Roosevelt Story, the PA for Dr. Guzman. Usha yusuf had ordered vancomycin for possible recurrent infection/cerebritis on the CT scan. I informed th em that clinically that she is not having any evidence for any infection. Vital signs have been stab le. No temperature. White count has been normal and that the CT scan was done mainly, because the f darcie wanted to know if the tumor has come back. OBJECTIVE: VITAL SIGNS: She is afebrile, heart rate 80, respirations 18, oxygen saturation 97% on room air, blo od pressure 127/59. CARDIOVASCULAR SYSTEM: S1 and S2 plus. RESPIRATORY SYSTEM: Normal vesicular breath sounds. ABDOMEN: Soft, nontender, bowel sounds heard in all quadrants. EXTREMITIES: Without cyanosis or clubbing. CENTRAL NERVOUS SYSTEM: No change in deficits. IMPRESSION: 1. Status post glioblastoma excision. 2. Resolved methicillin-resistant Staphylococcus aureus cerebritis. 3. Resolved urinary tract infection. 4. Hypertension, well controlled. 5. Coronary artery disease without angina. 6. Significant deconditioning and neurological deficits. 7. CT brain showing some ring enhancement concerning for infection versus tumor infiltration. PLAN: 1. Empiric vancomycin per Neurosurgery. They want to continue it at present. 2. Roosevelt stated that she will discuss with Dr. Guzman and see [facility] 3. Continue supportive care. 4. Tube feedings with aspiration precautions. 5. Continue physical therapy and occupational therapy and speech therapy. 6. Routine laboratory values. 7. Deep vein thrombosis and stress ulcer prophylaxis. 8. Decubitus precautions. 9. Discussed with daughter in detail. All questions answered.
[2017-11-09] MEDS: Vancomycin HCl 750 MG in Sodium Chloride 0.9% 250 ML 250 ML IVPB SCH (18:41)
[2017-11-09] MEDS: Vancomycin HCl 500 MG in Sodium Chloride 0.9% 100 ML IVPB SCH (20:13)
[2017-11-10] MEDS: Calcium Carbonate + Vit D 1 TAB PER TUBE SCH (09:48)
[2017-11-10] MEDS: Dofetilide 0.125 MG CAP PER TUBE SCH ×3 (09:49→21:35)
[2017-11-10] MEDS: Lactinex Tablet PER TUBE SCH (09:50)
[2017-11-10] MEDS: Magnesium Oxide 400 MG TAB PO SCH (09:51)
[2017-11-10] MEDS: Metoprolol Tartrate 50 MG TAB PER TUBE SCH ×2 (09:51→21:35)
[2017-11-10] MEDS: Losartan 25 MG TAB PER TUBE SCH ×2 (09:51→21:35)
[2017-11-10] MEDS: Nystatin 500,000 UNITS/5 ML UDCUP SSW SCH ×2 (09:52→21:35)
[2017-11-10] MEDS: Enoxaparin Sodium 30 MG/0.3 ML SYRINGE SC SCH (10:20)
--- NOTE | 2017-11-10 15:53 | PRG ---
DATE OF SERVICE: 11/10/2017 SUBJECTIVE: Ms. Eckert is doing the same. She is awake, working with therapy. Therapy states that she is improving. She is tolerating her pleasure feeds when she is awake which are mainly ice chips or pudding. Tolerating her PEG tube feedings. She is tolerating her vancomycin. Discussed with the rapy and they state that they have pretty much reached a plateau and her last day for therapy is nitza rrow. She is still on the IV antibiotics and I discussed with the family. They have almost decided on a place. They are waiting to talk to Dr. Guzman to finalize future plans. I advised them that sh e better being on antibiotics. We will plan on a tentative discharge for Tuesday. OBJECTIVE: VITAL SIGNS: She is afebrile, heart rate 80, respirations 16, oxygen saturation 97% on room air, blo od pressure 134/63. CARDIOVASCULAR SYSTEM: S1, S2 plus. RESPIRATORY SYSTEM: Normal vesicular breath sounds. ABDOMEN: Soft, nontender, bowel sounds heard in all quadrants. PEG tube site is healthy. EXTREMITIES: Without cyanosis or clubbing. CENTRAL NERVOUS SYSTEM: No change. IMPRESSION: 1. Status post glioblastoma excision. 2. 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 Guzman ordered vancomycin, but clinically I do not see any evidence for infection. 3. Resolved urinary tract infection. 4. Coronary artery disease without angina. 5. Significant deconditioning. 6. Dysphagia. PLAN: 1. Continue vancomycin. 2. Nutritional support. 3. DVT and stress ulcer prophylaxis. 4. Decubitus precautions. 5. Await family's discussion with Dr. Guzman as future plan of care. 6. [facility]. Discussed with daughter in det ail and all questions answered.
[2017-11-10] MEDS ORDERED: Sodium Chloride 0.9% 0 ML ONE (17:31)
[2017-11-10] MEDS ORDERED: Sodium Chloride 0.9% 10 ML ONE ×2 (18:35→18:38)
[2017-11-10] MEDS: Vancomycin HCl 750 MG in Sodium Chloride 0.9% 250 ML 250 ML IVPB SCH (18:43)
[2017-11-10 19:24] LABS: Vancomycin, Trough 14.7 ug/mL
[2017-11-10] MEDS: Vancomycin HCl 500 MG in Sodium Chloride 0.9% 100 ML IVPB SCH (20:45)
[2017-11-11] MEDS: Losartan 25 MG TAB PER TUBE SCH ×2 (08:03→20:42)
[2017-11-11] MEDS: Lactinex Tablet PER TUBE SCH (08:03)
[2017-11-11] MEDS: Dofetilide 0.125 MG CAP PER TUBE SCH ×3 (08:03→20:43)
[2017-11-11] MEDS: Nystatin 500,000 UNITS/5 ML UDCUP SSW SCH ×2 (08:03→20:41)
[2017-11-11] MEDS: Calcium Carbonate + Vit D 1 TAB PER TUBE SCH (08:03)
[2017-11-11] MEDS: Magnesium Oxide 400 MG TAB PO SCH (08:03)
[2017-11-11] MEDS: Metoprolol Tartrate 50 MG TAB PER TUBE SCH ×2 (08:03→20:42)
[2017-11-11] MEDS: Enoxaparin Sodium 30 MG/0.3 ML SYRINGE SC SCH (16:43)
[2017-11-11] MEDS ORDERED: Sodium Chloride 0.9% 10 ML ONE (18:40)
[2017-11-11] MEDS: Vancomycin HCl 750 MG in Sodium Chloride 0.9% 250 ML 250 ML IVPB SCH (18:43)
[2017-11-11] MEDS: Zinc Oxide 16% Ointment 60 gm Tube TOP PRN (20:41)
[2017-11-11] MEDS: Vancomycin HCl 500 MG in Sodium Chloride 0.9% 100 ML IVPB SCH (20:42)
--- NOTE | 2017-11-12 06:57 | PRG ---
DATE OF ADMISSION: 10/13/2017 DATE OF PROGRESS NOTE: 11/12/2017 HISTORY OF PRESENT ILLNESS: Ms. Eckert is a very pleasant 87-year-old white female who unfortunately was found to have a right-sided glioblastoma. She was taken to the surgical suite and operated on. She was discharged home, but did very poorly at home, and started picking at her incision. It becam e infected and she was brought back to the emergency room where her cerebritis and cellulitis were fo und. She had a surgery. She had a 3.3 x 3.1 intraaxial mass that had to be removed. This was irrig ated and washed out and eventually she was stabilized and transferred back to [facility] for antibiotics and physical therapy and occupational therapy. The patient is awake this morning while walking and talking to me and answering questions fairly well. Her nurse states that she had a little stinging episode through the evening. Otherwise, she is doing well and has no complaints to day. PHYSICAL EXAMINATION: VITAL SIGNS: Today reveal blood pressure 127/59, pulse 80, respirations 18 to 20, O2 sat 96% to 97% on room air, T-max 98.9. Vancomycin trough 2 days ago was 14.7. GENERAL: This is a well-developed, well-nourished, very pleasant, slightly obese white female, in no apparent distress at this time. HEENT: Reveals normocephalic, nontraumatic cranium. Pupils are equally round and reactive. Extraoc ular movements are intact. Nose and throat are slightly dry, but clear. Craniotomy site is well hea led. NECK: Supple without mass, nodes, or bruits. CHEST: Clear to auscultation. No rales, rhonchi, wheezes, or cough is heard. HEART: Reveals a regular rate and rhythm without murmurs, gallops, or rubs. ABDOMEN: Soft, nontender without organomegaly. Normal bowel sounds are noted. PEG tube site is sti ll healthy. EXTREMITIES: Reveal no clubbing, cyanosis, or edema. GENITOURINARY: Deferred. NEUROLOGIC: The patient has no changes. IMPRESSION: 1. Status post excision of glioblastoma. 2. 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 The patient still on vancomycin per Dr. Guzman. 3. Coronary artery disease without angina. 4. Resolved urinary tract infection. 5. Significant generalized deconditioning. 6. Dysphagia. PLAN: 1. Continue vancomycin at this time. 2. DVT and stress ulcer prophylaxis. 3. Decubitus precautions. 4. Nutritional support. 5. Family is to have a discussion with Dr. Guzman about future planning. 6. Patient is possibly to be discharged on Tuesday to a retirement facility.
[2017-11-12] MEDS: Dofetilide 0.125 MG CAP PER TUBE SCH ×3 (08:25→20:18)
[2017-11-12] MEDS: Losartan 25 MG TAB PER TUBE SCH ×2 (08:25→20:18)
[2017-11-12] MEDS: Calcium Carbonate + Vit D 1 TAB PER TUBE SCH (08:25)
[2017-11-12] MEDS: Nystatin 500,000 UNITS/5 ML UDCUP SSW SCH ×2 (08:25→20:18)
[2017-11-12] MEDS: Magnesium Oxide 400 MG TAB PO SCH (08:25)
[2017-11-12] MEDS: Lactinex Tablet PER TUBE SCH (08:25)
[2017-11-12] MEDS: Metoprolol Tartrate 50 MG TAB PER TUBE SCH ×2 (08:26→20:18)
[2017-11-12] MEDS: Enoxaparin Sodium 30 MG/0.3 ML SYRINGE SC SCH (15:44)
[2017-11-12] MEDS: Vancomycin HCl 750 MG in Sodium Chloride 0.9% 250 ML 250 ML IVPB SCH (18:21)
[2017-11-12] MEDS: Vancomycin HCl 500 MG in Sodium Chloride 0.9% 100 ML IVPB SCH (20:17)
[2017-11-13 06:20] VITALS: BMI 33.7
[2017-11-13] MEDS: Calcium Carbonate + Vit D 1 TAB PER TUBE SCH (08:34)
[2017-11-13] MEDS: Nystatin 500,000 UNITS/5 ML UDCUP SSW SCH ×2 (08:34→20:45)
[2017-11-13] MEDS: Losartan 25 MG TAB PER TUBE SCH ×2 (08:34→20:47)
[2017-11-13] MEDS: Dofetilide 0.125 MG CAP PER TUBE SCH ×3 (08:35→20:47)
[2017-11-13] MEDS: Metoprolol Tartrate 50 MG TAB PER TUBE SCH ×2 (08:35→20:47)
[2017-11-13] MEDS: Magnesium Oxide 400 MG TAB PO SCH (08:36)
[2017-11-13] MEDS: Lactinex Tablet PER TUBE SCH (08:48)
[2017-11-13] MEDS: Enoxaparin Sodium 30 MG/0.3 ML SYRINGE SC SCH (12:22)
[2017-11-13] MEDS ORDERED: Sodium Chloride 0.9% 10 ML ONE ×2 (17:24→20:26)
[2017-11-13] MEDS: Vancomycin HCl 750 MG in Sodium Chloride 0.9% 250 ML 250 ML IVPB SCH (17:54)
[2017-11-13] MEDS: Vancomycin HCl 500 MG in Sodium Chloride 0.9% 100 ML IVPB SCH (20:46)
--- NOTE | 2017-11-13 22:09 | PRG ---
DATE OF SERVICE: 11/13/2017 SUBJECTIVE: This is a well-developed, well-nourished, 87-year-old white female who unfortunately was found to have right-sided glioblastoma. She was taken to the surgical suite and operated on. She w as discharged home and did well for a while, but then started picking at her incision. It became inf ected and she was brought back, where she was found to have a cerebritis and cellulitis. She had alejandro edward to remove a 3.3 x 3.1 intraaxial mass that grew bacteria. It was irrigated and washed out, and she was transferred to [facility] for antibiotics, physical therapy, and occupational therapy. The patient is doing very well and laughing and talking this afternoon with the nurses. She has no c omplaints today. PHYSICAL EXAMINATION: VITAL SIGNS: Today, reveal blood pressure this morning 107/53, pulse 80-91, respirations 18-25, O2 s at 95%-98% on room air, T-max 97.5. GENERAL: This is a well-developed, well-nourished, slightly obese white female in no apparent distre ss at this time. HEENT: Reveals normocephalic, nontraumatic cranium. Pupils are equally round and reactive. Extraoc ular movements intact. Nose and throat are slightly dry. Craniotomy scar is well healed and not red or inflamed. NECK: Supple without mass, nodes, or bruits. CHEST: Clear to auscultation. No rales, rhonchi, or wheezes are heard. No cough is heard. HEART: Reveals a regular rate and rhythm without murmurs, gallops, or rubs. ABDOMEN: Soft and nontender without organomegaly. Normal bowel sounds are noted. No rebound or gua rding is noted. PEG tube is still working well. EXTREMITIES: Revealed no clubbing, cyanosis, or edema. GENITOURINARY: Deferred. NEUROLOGIC: No neurological deficits. Last labs were done on 11/08/2017. IMPRESSION: 1. Status post excision of glioblastoma. 2. 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 3. The patient is presently still on vancomycin per Dr. Guzman. 4. Coronary artery disease without angina. 5. Resolved urinary tract infection. 6. Generalized deconditioning. 7. Dysphagia. PLAN: 1. Continue vancomycin per Dr. Guzman's recommendation. 2. DVT and stress ulcer prophylaxis. 3. Decubitus precaution. 4. Nutritional support. 5. Family is to have a discussion with Dr. Guzman about future planning. 6. Discharged home or intermediate facility in the near future.
[2017-11-14] MEDS: Lactinex Tablet PER TUBE SCH (08:33)
[2017-11-14] MEDS: Losartan 25 MG TAB PER TUBE SCH ×2 (08:33→21:29)
[2017-11-14] MEDS: Dofetilide 0.125 MG CAP PER TUBE SCH ×3 (08:34→21:29)
[2017-11-14] MEDS: Metoprolol Tartrate 50 MG TAB PER TUBE SCH ×2 (08:34→21:28)
[2017-11-14] MEDS: Magnesium Oxide 400 MG TAB PO SCH (08:34)
[2017-11-14] MEDS: Nystatin 500,000 UNITS/5 ML UDCUP SSW SCH ×2 (08:34→21:29)
[2017-11-14] MEDS: Calcium Carbonate + Vit D 1 TAB PER TUBE SCH (08:34)
[2017-11-14] MEDS: Enoxaparin Sodium 30 MG/0.3 ML SYRINGE SC SCH (08:34)
--- NOTE | 2017-11-14 13:42 | PRG ---
DATE OF SERVICE: 11/14/2017 SUBJECTIVE: Ms. Eckert is doing the same. Denies any complaints, tolerating her vancomycin. Denies any concerns. OBJECTIVE: VITAL SIGNS: She is afebrile, heart rate is 80, respirations 55, oxygen saturation 96% on room air, and blood pressure 127/58. CARDIOVASCULAR: S1 and S2 plus. RESPIRATORY: Clear breath sounds. ABDOMEN: Soft, nontender, bowel sounds heard in all quadrants. EXTREMITIES: Without cyanosis or clubbing. ABDOMEN: PEG tube site is healthy. IMPRESSION: 1. Status post glioblastoma excision. 2. History of methicillin-resistant staphylococcus aureus cerebritis, which had resolved, but there is concern for it on CT. Clinically, she is fine, but empirically she has been ordered vancomycin by Dr. Guzman. 3. Hypertension, well controlled. 4. Coronary artery disease without angina. 5. Significant deconditioning. 6. Dysphagia. PLAN: 1. Continue PEG tube feeding. 2. Vancomycin for 10 days. 3. Continue physical therapy. 4. DVT and stress ulcer prophylaxis. 5. Decubitus precautions. 6. Routine laboratory values. 7. Poor long-term prognosis. 8. No family at bedside.
--- NOTE | 2017-11-14 17:32 | RAD ---
RIGHT FEMUR TWO VIEWS: HISTORY: Pain. COMPARISON: None. FINDINGS: The femur is intact. No fracture. No malalignment. Moderate enthesopathic changes of fragmentation along the greater trochanter. The obturator ring is intact. IMPRESSION: 1. Mild degenerative changes of the right hip. 2. 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 POS: [facility]
[2017-11-14 18:28] LABS: Vancomycin, Trough 12.4 ug/mL
[2017-11-14] MEDS: Vancomycin HCl 750 MG in Sodium Chloride 0.9% 250 ML 250 ML IVPB SCH ×3 (20:20→20:22)
[2017-11-15 05:56] LABS: #Basophils 0.1 thou/uL (0.0-0.2); #Eosinphils 0.5 thou/uL (0.0-0.7); #Lymphocytes 2.2 thou/uL (1.20-3.40); #Monocytes 0.8 thou/uL (0.11-0.59); #Neutrophils 3.8 thou/uL (1.40-6.50); %Basophils 1.4 % (0.0-1.0); %Lymphocytes 29.8 % (21.0-51.0); %Monocytes 10.6 % (0.0-10.0); %Neutrophils 51.2 % (42.0-75.0); Hemoglobin 12.4 g/dL (12.0-16.0); Mean Corpuscular HGB CONC 31.9 g/dL (32.0-36.0); Mean Corpuscular Hemoglobin 31.6 pg (27.0-31.0); Mean Corpuscular Volume 98.9 fl (81.0-99.0); Mean Platelet Volume 8.1 fL (7.4-10.4); Platelet Count 202 thou/uL (130-400); RBC Distribution Width 16.4 % (11.5-14.5); Red Blood Cell (RBC) Count 3.93 mill/uL (4.20-5.40); White Blood Cell (WBC) Count 7.4 thou/uL (4.8-10.8)
[2017-11-15 06:04] LABS: Anion Gap 14 mmol/L (10-20); BUN (Urea Nitrogen) 21 mg/dL (9.8-20.1); Calc. Creatinine Clearance 92 mL/min (70-130); Carbon Dioxide 22 mmol/L (23-31); Chloride 106 mmol/L (98-107); Estimated GFR-MDRD Greater than 90; Glucose 114 mg/dL (83-110); Potassium 4.1 mmol/L (3.5-5.1); Sodium 138 mmol/L (136-145)
[2017-11-15] MEDS: Dofetilide 0.125 MG CAP PER TUBE SCH ×3 (08:28→20:48)
[2017-11-15] MEDS: Losartan 25 MG TAB PER TUBE SCH ×2 (08:28→20:48)
[2017-11-15] MEDS: Calcium Carbonate + Vit D 1 TAB PER TUBE SCH (08:28)
[2017-11-15] MEDS: Nystatin 500,000 UNITS/5 ML UDCUP SSW SCH ×2 (08:28→20:47)
[2017-11-15] MEDS: Magnesium Oxide 400 MG TAB PO SCH (08:28)
[2017-11-15] MEDS: Lactinex Tablet PER TUBE SCH (08:29)
[2017-11-15] MEDS: Metoprolol Tartrate 50 MG TAB PER TUBE SCH ×2 (08:29→20:48)
[2017-11-15] MEDS: Enoxaparin Sodium 30 MG/0.3 ML SYRINGE SC SCH (11:37)
[2017-11-15] MEDS ORDERED: Sodium Chloride 0.9% 20 ML ONE (17:18)
[2017-11-15] MEDS: Vancomycin HCl 750 MG in Sodium Chloride 0.9% 250 ML 250 ML IVPB SCH ×2 (18:14→20:47)
--- NOTE | 2017-11-15 18:55 | PRG ---
DATE OF SERVICE: 11/15/2017 SUBJECTIVE: Ms. Eckert is doing the same. Denies any concerns. Her daughter is in the room. She i s tolerating her vancomycin. OBJECTIVE: VITAL SIGNS: She is afebrile, heart rate is 79, respirations are 16, oxygen saturation is 98% on becca m air, and blood pressure 121/60. CARDIOVASCULAR: S1 and S2 plus. RESPIRATORY: Normal vesicular breath sounds. ABDOMEN: Soft, nontender, bowel sounds heard in all quadrants. EXTREMITIES: Without cyanosis or clubbing. PEG tube site is healthy. CENTRAL NERVOUS SYSTEM: No change. LABORATORY VALUES: White count is 7.4, H&H is 12.4 and 38.9. Chemistry shows a sodium 138, potassiu m 4.1, BUN and creatinine 21 and 0.58. IMPRESSION: 1. Glioblastoma, status post excision. 2. Methicillin resistant staphylococcus aureus cerebritis, which was treated with oral Zyvox. 3. Question of recurrent or persistent infection on CT scan with clinically no symptoms on empiric v ancomycin. 4. Coronary artery disease without angina. 5. Hypertension. 6. Dysphagia, requiring PEG tube placement. PLAN: 1. Continue vancomycin. 2. She has outpatient followup with Dr. Guzman on Tuesday, which is the last of her antibiotic. We w ill check with nursing and see if it is easier for her to go to the appointment with Dr. Guzman and grant hen go to her [facility] facility. 3. Continue nutritional support. 4. Aspiration precautions. 5. Routine laboratory values. 6. Discussed with daughter in detail and all questions answered. The daughter stated that she did h ave x-ray of her leg because when the nurses returning, she apparently complained of pain. The x-ray just shows arthritis and no fracture.
[2017-11-16] MEDS: Dofetilide 0.125 MG CAP PER TUBE SCH ×2 (09:25→21:05)
[2017-11-16] MEDS: Nystatin 500,000 UNITS/5 ML UDCUP SSW SCH ×2 (10:05→21:06)
[2017-11-16] MEDS: Calcium Carbonate + Vit D 1 TAB PER TUBE SCH (10:09)
[2017-11-16] MEDS: Lactinex Tablet PER TUBE SCH (10:09)
[2017-11-16] MEDS: Losartan 25 MG TAB PER TUBE SCH ×2 (10:19→21:05)
[2017-11-16] MEDS: Metoprolol Tartrate 50 MG TAB PER TUBE SCH ×2 (10:53→21:06)
[2017-11-16] MEDS: Magnesium Oxide 400 MG TAB PO SCH (10:53)
[2017-11-16] MEDS: Enoxaparin Sodium 30 MG/0.3 ML SYRINGE SC SCH (10:55)
[2017-11-16] MEDS: Zinc Oxide 16% Ointment 60 gm Tube TOP PRN (10:56)
--- NOTE | 2017-11-16 13:28 | PRG ---
DATE OF SERVICE: 11/16/2017 SUBJECTIVE: Ms. Eckert is doing the same. Denies any complaints. She is awake. No family at [facility]. OBJECTIVE: VITAL SIGNS: She is afebrile, heart rate is 83, respirations 18, oxygen saturation 97% on room air, and blood pressure 131/59. CARDIOVASCULAR SYSTEM: S1, S2 plus. RESPIRATORY SYSTEM: Normal vesicular breath sounds. ABDOMEN: Soft and nontender. Bowel sounds heard in all quadrants. EXTREMITIES: Without cyanosis or clubbing. PEG tube site is healthy. CENTRAL NERVOUS SYSTEM: Persistent deficits. IMPRESSION: 1. Status post glioblastoma excision. 2. Coronary artery disease without angina. 3. Hypertension, well controlled. 4. Dysphagia, requiring percutaneous endoscopic gastrostomy tube placement. 5. History of methicillin-resistant Staphylococcus aureus cerebritis currently on empiric vancomycin for either persistent or recurrent cerebritis, clinically no symptoms. PLAN: 1. Finish vancomycin this Tuesday. 2. Follow up with Dr. Guzman this Tuesday. 3. Anticipate discharging her to retirement facility on Tuesday. 4. Continue supportive care. 5. DVT and stress ulcer prophylaxis. 6. Decubitus precautions. 7. Therapy. 8. Routine laboratory values.
[2017-11-16 18:32] LABS: Vancomycin, Trough 15.4 ug/mL
[2017-11-16] MEDS ORDERED: Sodium Chloride 0.9% 10 ML ONE (18:59)
[2017-11-16] MEDS: Vancomycin HCl 750 MG in Sodium Chloride 0.9% 250 ML 250 ML IVPB SCH ×2 (20:04→20:05)
[2017-11-17] MEDS: Dofetilide 0.125 MG CAP PER TUBE SCH ×4 (08:58→21:50)
[2017-11-17] MEDS: Losartan 25 MG TAB PER TUBE SCH ×2 (09:00→21:51)
[2017-11-17] MEDS: Metoprolol Tartrate 50 MG TAB PER TUBE SCH ×2 (09:01→21:50)
[2017-11-17] MEDS: Calcium Carbonate + Vit D 1 TAB PER TUBE SCH (09:01)
[2017-11-17] MEDS: Magnesium Oxide 400 MG TAB PO SCH (09:01)
[2017-11-17] MEDS: Lactinex Tablet PER TUBE SCH (09:02)
[2017-11-17] MEDS: Nystatin 500,000 UNITS/5 ML UDCUP SSW SCH ×2 (09:03→21:49)
[2017-11-17] MEDS: Enoxaparin Sodium 30 MG/0.3 ML SYRINGE SC SCH (11:39)
--- NOTE | 2017-11-17 13:07 | PRG ---
DATE OF SERVICE: 11/17/2017 SUBJECTIVE: Ms. Eckert is doing well. Denies any complaints, resting comfortably. No family at bed side. She denies any chest pain or shortness of breath. Denies any nausea, vomiting, diarrhea, I am not sure how accurate this history is given her cognitive deficits, but discussed with nursing and n o concerns. OBJECTIVE: VITAL SIGNS: She is afebrile, heart rate is 79, respirations 20, oxygen saturation is 98% on room ai r, and blood pressure 120/67. CARDIOVASCULAR: S1 and S2 plus. RESPIRATORY: Normal breath sounds. ABDOMEN: Soft, nontender, bowel sounds heard in all quadrants. PEG tube site is healthy. EXTREMITIES: Without cyanosis or clubbing. Peripheral pulses are palpable. CENTRAL NERVOUS SYSTEM: Persistent deficits. IMPRESSION: 1. Status post glioblastoma excision. 2. Coronary artery disease without angina. 3. Hypertension, well controlled. 4. Dyslipidemia. 5. Dysphagia, requiring PEG tube placement. 6. History of methicillin-resistant staphylococcus aureus cerebritis, initially treated with Zyvox a nd CT scan of the brain done to see if there is any recurrence of glioblastoma showed some enhancemen t, so Neurosurgery wanted her to be on empiric vancomycin. Clinically, I do not see any evidence of infection. PLAN: 1. Finish vancomycin tomorrow. 2. She has an outpatient followup with Dr. Guzman tomorrow. 3. Anticipate discharging her tomorrow to assisted facility. 4. Continue tube feeding with aspiration precautions. 5. Routine laboratory values. 6. No family at bedside. 7. Poor long-term prognosis.
[2017-11-17] MEDS ORDERED: Vancomycin HCl 750 MG in Sodium Chloride 0.9% 250 ML 250 ML IVPB SCH ×2 (23:00→23:59)
[2017-11-18 07:26] VITALS: BP 124/59; TEMP 98.2
[2017-11-18] MEDS: Dofetilide 0.125 MG CAP PER TUBE SCH ×2 (08:03→14:35)
[2017-11-18] MEDS: Losartan 25 MG TAB PER TUBE SCH (08:03)
[2017-11-18] MEDS: Nystatin 500,000 UNITS/5 ML UDCUP SSW SCH (08:03)
[2017-11-18] MEDS: Lactinex Tablet PER TUBE SCH (08:03)
[2017-11-18] MEDS: Magnesium Oxide 400 MG TAB PO SCH (08:03)
[2017-11-18] MEDS: Metoprolol Tartrate 50 MG TAB PER TUBE SCH (08:03)
[2017-11-18] MEDS: Calcium Carbonate + Vit D 1 TAB PER TUBE SCH (08:07)
[2017-11-18] MEDS: Enoxaparin Sodium 30 MG/0.3 ML SYRINGE SC SCH (12:17)
--- NOTE | 2017-11-18 14:26 | DIS ---
DATE OF ADMISSION: 10/13/2017 DATE OF DISCHARGE: 11/18/2017 PRINCIPAL DIAGNOSIS: 1. Status post glioblastoma excision with significant neurological deficits. 2. Methicillin-resistant Staphylococcus aureus cerebritis requiring Zyvox initially followed by vanc omycin IV and now being discharged on 6 weeks of minocycline and Bactrim. 3. History of cardiac arrhythmia status post pacemaker placement. 4. Hypertension, well controlled. 5. Dyslipidemia. 6. Osteoporosis. 7. Coronary artery disease without angina. 8. History of peripheral vascular disease. 9. Significant deconditioning. 10. Dysphagia requiring percutaneous endoscopic gastrostomy tube placement. COMPLICATIONS: None. ADVERSE REACTIONS: None. PROCEDURES: CT scan of the brain. CONSULTATIONS: Physical therapy, occupational therapy, and speech therapy. HOSPITAL COURSE: The patient was admitted on 10/13/2017 after undergoing surgery for glioblastoma. She unfortunately developed MRSA cerebritis most likely due to her picking on her wound incision. Kenyon dunn had to have a washout and she was recommended Zyvox p.o. until 11/01/2017. She was admitted to [facility] here and was monitored by speech therapy as well as PT and OT. She has been to lerating her tube feedings without any issues. She has not shown any signs of recurrence of infectio n while she has been here. She has improved slightly. Family did want to see if her glioblastoma is coming back because they were told that it will be back by October, so I ordered a CT brain. Dr. Vázquez er reviewed the CT brain and felt that the enhancements that were seen were possibly persistence of c erebritis or even worsening, so he recommended IV vancomycin that was done for 10 days. He followed her up in the clinic and thought that she was better due to the antibiotics and recommended 6 more we eks of antibiotics. I had a discussion with them and explained to him that she has been improving ev en prior to the vancomycin and the vancomycin did not make any dramatic difference. He felt that sin ce it is really not worthwhile to try to go wash her out again and do some cultures then, he would re commend empiric antibiotics just to be safe and I discussed with Dr. Lombardo and his first choice was Z yvox, but if that was deemed to be too expensive for the alf facility, then a combination of minocycline and Bactrim. We called her SNF where she is going [facility] and they stated they coul d not pay for Zyvox. We are confirming to make sure they will pay for the minocycline and Bactrim an d if so, we will discharge her. Dr. Lombardo wanted him to do weekly CBC, CRP, CMP and sed rate, and fa x the results to both him and Dr. Guzman. I spoke with patient's son Nakul and explained my conversat ions with Dr. Guzman and Dr. Lombardo and answered all his questions. She unfortunately has met her cri teria of maximum stay here and so we are transferring her to alf facility. She will have physical therapy, occupational therapy, and speech therapy evaluation and treat over there. PHYSICAL EXAMINATION: VITAL SIGNS: On the day of discharge, she is afebrile, heart rate is 80, respirations are 24, oxygen saturation is 96% on room air, blood pressure 124/59. Twenty four is what marked on the value sheet , this is from this morning. When I examined her this afternoon, her respiratory rate is about 18. CARDIOVASCULAR SYSTEM: S1, S2 plus. RESPIRATORY SYSTEM: Normal vesicular breath sounds. ABDOMEN: Soft, nontender, bowel sounds heard in all quadrants. PEG tube site is healthy. EXTREMITIES: Without cyanosis or clubbing. Peripheral pulses are palpable. CENTRAL NERVOUS SYSTEM: Persistent deficits. DISCHARGE MEDICATIONS: Now all these medicines will be given through PEG tube. 1. Minocycline 100 mg b.i.d. for 6 weeks. 2. Bactrim DS b.i.d. for 6 weeks. 3. Vitamin D3 1000 international units daily. 4. Tikosyn 0.125 mg t.i.d. 5. Cozaar 50 mg b.i.d. 6. Magnesium oxide 400 mg daily. 7. Lopressor 50 mg b.i.d. 8. Ranexa 500 mg b.i.d. and she will be on Lovenox 30 mg subcutaneously daily. As stated, weekly CBC, CRP, CMP and sed rate fax results to both Dr. Fredis Guzman and Dr. Rudy stout. She will be followed by the medical sales consultant or the [facility], PT/OT, and speech therapy to evaluate and treat. Obviously, they are going to follow decubitus p recautions and PEG tube care. Head end of bed at 30 degrees at all times. Discussed with nursing an d family. Total time spent on this discharge including coordinating care 40 minutes.
[2017-11-18] MEDS ORDERED: Sulfameth/Trimethoprim DS 800-160mg TAB PER TUBE SCH (21:00)
== END 2017-11-18 15:58 | DRG 949 ==
LOC: NAV ACUTE 16:40
PROVIDERS: ADMIT Internal Medicine; ATTEND Internal Medicine
DX: Z48.3 Aftercare following surgery for neoplasm (principal); G04.90 Encephalitis and encephalomyelitis, unspecified; C71.9 Malignant neoplasm of brain, unspecified; Z93.1 Gastrostomy status; R47.01 Aphasia; R13.10 Dysphagia, unspecified; E87.1 Hypo-osmolality and hyponatremia; N39.0 Urinary tract infection, site not specified; B95.62 Methicillin resistant Staphylococcus aureus infection as the cause of diseases classified elsewhere; Z95.0 Presence of cardiac pacemaker; I10 Essential (primary) hypertension; E78.5 Hyperlipidemia, unspecified; M81.0 Age-related osteoporosis without current pathological fracture; I25.10 Atherosclerotic heart disease of native coronary artery without angina pectoris; I73.9 Peripheral vascular disease, unspecified; B96.20 Unspecified Escherichia coli [E. coli] as the cause of diseases classified elsewhere
CPT/HCPCS: 36415; 36416; 70470; 80048; 80053; 80202; 81001; 85025; 87077; 87086; 87186; A4216; G8996-GN-CL; G8996-GN-CN; G8997-GN-CL; G8997-GN-CM; J1650; J3370; J7050; J8499